=== PATIENT | male | born 1990 | race Caucasian/White ===

== ENCOUNTER 2018-10-26 15:13 | Inpatient (IN) | payer OTHER ==
--- NOTE | 2018-10-26 16:09 | ED ---
General Adult HPI - General Chief complaint: Psychiatric Symptoms Stated complaint: MENTAL HEALTH Time Seen by Provider: 10/26/18 15:36 Source: director of fundraising Mode of arrival: EMS Limitations: altered mental status - History of Present Illness Initial comments: Patient is a 27-year-old male presenting for active psychosis. He was found wandering in the backyard of someone's house in his underwear. Per EMS as well as firefighters, it is suspected that the patient took methamphetamines as well as cocaine. Patient is alert and oriented 1 and denies any pain but is unclear whether this is reliable or not. - Related Data Home Medications Medication Instructions Recorded Confirmed No Known Home Medications 10/26/18 10/26/18 Allergies Allergy/AdvReac Type Severity Reaction Status Date / Time No Known Allergies Allergy Verified 10/26/18 16:06 Review of Systems ROS Statement: Those systems with pertinent positive or pertinent negative responses have been documented in the HPI. Unable to be obtained as patient has altered mental status ROS Other: All systems not noted in ROS Statement are negative. Past Medical History Past Medical History: No Reported History History of Any Multi-Drug Resistant Organisms: None Reported Past Surgical History: No Surgical Hx Reported Past Psychological History: Bipolar Smoking Status: Current every day smoker Past Alcohol Use History: Occasional Past Drug Use History: Heroin, Opiates, Prescription Drug Abuse General Exam - General Exam Comments Initial Comments: Constitutional: Pt appears well-developed and well-nourished. No distress. Head: Normocephalic and atraumatic. Eyes: EOM are normal. Neck: Normal range of motion. Neck supple. Cardiovascular: Normal rate, regular rhythm, S1 normal, S2 normal and normal heart sounds. Exam reveals no gallop and no friction rub. No murmur heard. Pulmonary/Chest: Effort normal and breath sounds normal. No tachypnea and no bradypnea. No respiratory distress. No wheezes or rales noted. Abdominal: Soft. Bowel sounds are normal. Pt exhibits no shifting dullness, no distension, no pulsatile liver, no fluid wave, no abdominal bruit and no ascites. There is no rigidity, no rebound, no guarding, no tenderness at McBurney's point and negative Rios's sign. There is no tenderness. Musculoskeletal: Normal range of motion. Neurological: Pt is alert and oriented to person. No cranial nerve deficit. Skin: Skin is warm and dry. No rash noted. Pt is not diaphoretic. No erythema. No pallor. Psychiatric: Pt has a normal mood. Thought content is abnormal. Patient denies any homicidal or suicidal ideation Limitations: altered mental status Course Vital Signs 10/26/18 10/26/18 10/26/18 15:16 18:09 20:05 Pulse Rate 70 87 80 Respiratory 18 16 16 Rate Blood Pressure 139/77 132/95 132/96 O2 Sat by Pulse 98 99 99 Oximetry - Reevaluation(s) Reevaluation #1: 10/26/18 16:30 - patient started having a tonic-clonic seizure requiring 5 of Versed and 2 of Ativan. Additional Laboratory studies were ordered and pending Reevaluation #2: 10/26/18 17:00 - patient was able to go to CAT scan and results are pending. Laboratory studies are also pending. Patient is becoming more combative and required another 5 of Versed and 2 of Ativan. Patient continues to protect his airway. Reevaluation #3: 10/26/18 19:27 - case is discussed with Dr. Christian and it was recommended ABG be obtained. However, patient became very combative when this happened. Patient was again not cooperative and decision was ultimately made to intubate the patient and patient will be admitted to the ICU. Laboratory studies did show that there was significant leukocytosis at 35,000 but there is no focal source of infection. Lactic acid was also elevated at 12 and therefore the patient was given infusion of normal saline as well as multiple boluses. Urinalysis was negative for infection as well as UDS pain only positive for marijuana. However, there is still high likelihood that the patient had an illicit drug use which caused his encephalopathy. Reevaluation #4: 10/26/18 19:42 - patient intubated without complication as noted in the procedure note. Reevaluation #5: 10/26/18 20:30 - post intubation x-ray showed possible new right upper lobe infi ltrate. This cannot be verified as there are technical IT problems prohibit viewing of this x-ray. Nonetheless, based on the x-ray reading by radiology, patient will be started on vancomycin and Zosyn. EKG Findings - EKG Comments: EKG Findings:: EKG shows normal sinus rhythm with rate of 97 bpm, SC interval 122, QRS 96, QTC 4-16. Procedures - Intubation Sedative: Etomidate Paralytic: Rocuronium Laryngoscope: Marissa Size: 4 ET Tube Size: 8 ET Tube Uncuffed: Yes Tube Secured Depth (cm): 23 Tube Secured Location: teeth Tube Placement Confirmation: visualized tube passing through cords, equal breath sounds bilaterally, confirmation by capnometry Patient Tolerated Procedure: well Intubation Complications: none Medical Decision Making - Medical Decision Making As noted in the course summary, patient was eventually intubated as he was unable to follow commands. Extensive discussion was had with ICU and it was decided that the patient could stay at our facility. Patient was started on a propofol drip and patient was intubated without complication. The etiology of the patient's encephalopathy is still unclear but there is no obvious source of infection and therefore antibiotics were not initiated. - Lab Data Result diagrams: 10/26/18 16:24 10/26/18 16:24 Lab Results 10/26/18 10/26/18 10/26/18 Range/Units 16:20 16:24 16:24 WBC 35.2 H (3.8-10.6) k/uL RBC 5.36 (4.30-5.90) m/uL Hgb 16.0 (13.0-17.5) gm/dL Hct 49.3 (39.0-53.0) % MCV 92.1 (80.0-100.0) fL MCH 29.9 (25.0-35.0) pg MCHC 32.4 (31.0-37.0) g/dL RDW 12.5 (11.5-15.5) % Plt Count 272 (150-450) k/uL Neutrophils % 87 % Lymphocytes % 2 % Monocytes % 9 % Eosinophils % 1 % Basophils % 0 % Neutrophils # 30.5 H (1.3-7.7) k/uL Lymphocytes # 0.7 L (1.0-4.8) k/uL Monocytes # 3.2 H (0-1.0) k/uL Eosinophils # 0.3 (0-0.7) k/uL Basophils # 0.1 (0-0.2) k/uL Manual Slide Review Performed RBC Morphology Normal PT (9.0-12.0) sec INR (<1.2) APTT (22.0-30.0) sec Sodium 148 H (137-145) mmol/L Potassium 4.4 (3.5-5.1) mmol/L Chloride 113 H (98-107) mmol/L Carbon Dioxide 11 L (22-30) mmol/L Anion Gap 24 mmol/L BUN 14 (9-20) mg/dL Creatinine 1.40 H (0.66-1.25) mg/dL Est GFR (CKD-EPI)AfAm 81 (>60 ml/min/1.73 sqM) Est GFR (CKD-EPI)NonAf 70 (>60 ml/min/1.73 sqM) Glucose 109 H (74-99) mg/dL POC Glucose (mg/dL) 112 H (75-99) mg/dL POC Glu Loss Prevention/Safety District Manager ID SalgatLissa Lactic Ac Sepsis Rflx Plasma Lactic Acid Caleb (0.7-2.0) mmol/L Calcium 10.9 H (8.4-10.2) mg/dL Total Bilirubin 1.0 (0.2-1.3) mg/dL AST 55 (17-59) U/L ALT 15 L (21-72) U/L Alkaline Phosphatase 89 (38-126) U/L Creatine Kinase (55-170) U/L Troponin I (0.000-0.034) ng/mL Total Protein 8.8 H (6.3-8.2) g/dL Albumin 5.7 H (3.5-5.0) g/dL Urine Color Urine Appearance (Clear) Urine pH (5.0-8.0) Ur Specific [place] (1.001-1.035) Urine Protein (Negative) Urine Glucose (UA) (Negative) Urine Ketones (Negative) Urine Blood (Negative) Urine Nitrite (Negative) Urine Bilirubin (Negative) Urine Urobilinogen (<2.0) mg/dL Ur Leukocyte Esterase (Negative) Urine RBC (0-5) /hpf Urine WBC (0-5) /hpf Urine Bacteria (None) /hpf Hyaline Casts (0-2) /lpf Urine Mucus (None) /hpf Salicylates <1.0 mg/dL Urine Opiates Screen (NotDetected) Ur Oxycodone Screen (NotDetected) Urine Methadone Screen (NotDetected) Ur Propoxyphene Screen (NotDetected) Acetaminophen <10.0 ug/mL Ur Barbiturates Screen (NotDetected) U Tricyclic Antidepress (NotDetected) Ur Phencyclidine Scrn (NotDetected) Ur Amphetamines Screen (NotDetected) U Methamphetamines Scrn (NotDetected) U Benzodiazepines Scrn (NotDetected) [place] <0.2 mmol/L Urine Cocaine Screen (NotDetected) U Marijuana (THC) Screen (NotDetected) Serum Alcohol <10 mg/dL 10/26/18 10/26/18 10/26/18 Range/Units 16:24 16:24 16:24 WBC (3.8-10.6) k/uL RBC (4.30-5.90) m/uL Hgb (13.0-17.5) gm/dL Hct (39.0-53.0) % MCV (80.0-100.0) fL MCH (25.0-35.0) pg MCHC (31.0-37.0) g/dL RDW (11.5-15.5) % Plt Count (150-450) k/uL Neutrophils % % Lymphocytes % % Monocytes % % Eosinophils % % Basophils % % Neutrophils # (1.3-7.7) k/uL Lymphocytes # (1.0-4.8) k/uL Monocytes # (0-1.0) k/uL Eosinophils # (0-0.7) k/uL Basophils # (0-0.2) k/uL Manual Slide Review RBC Morphology PT 10.6 (9.0-12.0) sec INR 1.0 (<1.2) APTT 18.1 L (22.0-30.0) sec Sodium (137-145) mmol/L Potassium (3.5-5.1) mmol/L Chloride (98-107) mmol/L Carbon Dioxide (22-30) mmol/L Anion Gap mmol/L BUN (9-20) mg/dL Creatinine (0.66-1.25) mg/dL Est GFR (CKD-EPI)AfAm (>60 ml/min/1.73 sqM) Est GFR (CKD-EPI)NonAf (>60 ml/min/1.73 sqM) Glucose (74-99) mg/dL POC Glucose (mg/dL) (75-99) mg/dL POC Glu Loss Prevention/Safety District Manager ID Lactic Ac Sepsis Rflx Plasma Lactic Acid Caleb 12.0 H* (0.7-2.0) mmol/L Calcium (8.4-10.2) mg/dL Total Bilirubin (0.2-1.3) mg/dL AST (17-59) U/L ALT (21-72) U/L Alkaline Phosphatase (38-126) U/L Creatine Kinase (55-170) U/L Troponin I <0.012 (0.000-0.034) ng/mL Total Protein (6.3-8.2) g/dL Albumin (3.5-5.0) g/dL Urine Color Urine Appearance (Clear) Urine pH (5.0-8.0) Ur Specific [place] (1.001-1.035) Urine Protein (Negative) Urine Glucose (UA) (Negative) Urine Ketones (Negative) Urine Blood (Negative) Urine Nitrite (Negative) Urine Bilirubin (Negative) Urine Urobilinogen (<2.0) mg/dL Ur Leukocyte Esterase (Negative) Urine RBC (0-5) /hpf Urine WBC (0-5) /hpf Urine Bacteria (None) /hpf Hyaline Casts (0-2) /lpf Urine Mucus (None) /hpf Salicylates mg/dL Urine Opiates Screen (NotDetected) Ur Oxycodone Screen (NotDetected) Urine Methadone Screen (NotDetected) Ur Propoxyphene Screen (NotDetected) Acetaminophen ug/mL Ur Barbiturates Screen (NotDetected) U Tricyclic Antidepress (NotDetected) Ur Phencyclidine Scrn (NotDetected) Ur Amphetamines Screen (NotDetected) U Methamphetamines Scrn (NotDetected) U Benzodiazepines Scrn (NotDetected) [place] mmol/L Urine Cocaine Screen (NotDetected) U Marijuana (THC) Screen (NotDetected) Serum Alcohol mg/dL 10/26/18 10/26/18 10/26/18 Range/Units 16:24 16:55 17:35 WBC (3.8-10.6) k/uL RBC (4.30-5.90) m/uL Hgb (13.0-17.5) gm/dL Hct (39.0-53.0) % MCV (80.0-100.0) fL MCH (25.0-35.0) pg MCHC (31.0-37.0) g/dL RDW (11.5-15.5) % Plt Count (150-450) k/uL Neutrophils % % Lymphocytes % % Monocytes % % Eosinophils % % Basophils % % Neutrophils # (1.3-7.7) k/uL Lymphocytes # (1.0-4.8) k/uL Monocytes # (0-1.0) k/uL Eosinophils # (0-0.7) k/uL Basophils # (0-0.2) k/uL Manual Slide Review RBC Morphology PT (9.0-12.0) sec INR (<1.2) APTT (22.0-30.0) sec Sodium (137-145) mmol/L Potassium (3.5-5.1) mmol/L Chloride (98-107) mmol/L Carbon Dioxide (22-30) mmol/L Anion Gap mmol/L BUN (9-20) mg/dL Creatinine (0.66-1.25) mg/dL Est GFR (CKD-EPI)AfAm (>60 ml/min/1.73 sqM) Est GFR (CKD-EPI)NonAf (>60 ml/min/1.73 sqM) Glucose (74-99) mg/dL POC Glucose (mg/dL) (75-99) mg/dL POC Glu Loss Prevention/Safety District Manager ID Lactic Ac Sepsis Rflx Y Plasma Lactic Acid Caleb (0.7-2.0) mmol/L Calcium (8.4-10.2) mg/dL Total Bilirubin (0.2-1.3) mg/dL AST (17-59) U/L ALT (21-72) U/L Alkaline Phosphatase (38-126) U/L Creatine Kinase 883 H (55-170) U/L Troponin I (0.000-0.034) ng/mL Total Protein (6.3-8.2) g/dL Albumin (3.5-5.0) g/dL Urine Color Light Yellow Urine Appearance Cloudy (Clear) Urine pH 5.5 (5.0-8.0) Ur Specific [place] 1.010 (1.001-1.035) Urine Protein 1+ H (Negative) Urine Glucose (UA) Negative (Negative) Urine Ketones Negative (Negative) Urine Blood Moderate H (Negative) Urine Nitrite Negative (Negative) Urine Bilirubin Negative (Negative) Urine Urobilinogen <2.0 (<2.0) mg/dL Ur Leukocyte Esterase Negative (Negative) Urine RBC 5 (0-5) /hpf Urine WBC 1 (0-5) /hpf Urine Bacteria Rare H (None) /hpf Hyaline Casts 1 (0-2) /lpf Urine Mucus Rare H (None) /hpf Salicylates mg/dL Urine Opiates Screen Not Detected (NotDetected) Ur Oxycodone Screen Not Detected (NotDetected) Urine Methadone Screen Not Detected (NotDetected) Ur Propoxyphene Screen Not Detected (NotDetected) Acetaminophen ug/mL Ur Barbiturates Screen Not Detected (NotDetected) U Tricyclic Antidepress Not Detected (NotDetected) Ur Phencyclidine Scrn Not Detected (NotDetected) Ur Amphetamines Screen Not Detected (NotDetected) U Methamphetamines Scrn Not Detected (NotDetected) U Benzodiazepines Scrn Not Detected (NotDetected) [place] mmol/L Urine Cocaine Screen Not Detected (NotDetected) U Marijuana (THC) Screen Detected H (NotDetected) Serum Alcohol mg/dL Disposition Clinical Impression: Encephalopathy, Witnessed seizure-like activity, SIRS (systemic inflammatory response syndrome) Disposition: ADMITTED IP TO THIS [facility] Condition: Fair Decision to Admit Reason: Admit from EC Decision Date: 10/26/18 Decision Time: 19:51
[2018-10-26] MEDS ORDERED: SODIUM CHLORIDE 0.9% 1,000 ML IV ONE ×2 (16:24→17:44)
[2018-10-26] MEDS ORDERED: MIDAZOLAM 1 MG/ML 5 ML VIAL IV STA ×3 (16:28→19:24)
[2018-10-26] MEDS: SODIUM CHLORIDE 0.9% 1,000 ML IV SCH (16:31)
[2018-10-26 16:39] LABS: Basophils # (A) 0.1 k/uL (0-0.2); Basophils % (A) 0 %; Eosinophils # (A) 0.3 k/uL (0-0.7); Eosinophils % (A) 1 %; HCT 49.3 % (39.0-53.0); Lymphocytes # (A) 0.7 k/uL (1.0-4.8); Lymphocytes % (A) 2 %; MCH 29.9 pg (25.0-35.0); MCHC 32.4 g/dL (31.0-37.0); MCV 92.1 fL (80.0-100.0); Mean Platelet Volume 7.2; Monocytes # (A) 3.2 k/uL (0-1.0); Monocytes % (A) 9 %; Neutrophils # (A) 30.5 k/uL (1.3-7.7); Neutrophils % (A) 87 %; Platelet Count 272 k/uL (150-450); RBC 5.36 m/uL (4.30-5.90); RDW 12.5 % (11.5-15.5); WBC 35.2 k/uL (3.8-10.6)
[2018-10-26 16:40] LABS: Glucose,Whole Blood 112 mg/dL (75-99)
[2018-10-26] MEDS ORDERED: LORazepam 2 MG/ML INJ IV STA ×2 (16:45→17:05)
[2018-10-26 16:48] LABS: ALT 15 U/L (21-72); AST 55 U/L (17-59); Acetaminophen <10.0 ug/mL; Albumin 5.7 g/dL (3.5-5.0); Alcohol <10 mg/dL; Alkaline Phosphatase 89 U/L (38-126); Anion Gap 24 mmol/L; Blood Urea Nitrogen 14 mg/dL (9-20); Calcium 10.9 mg/dL (8.4-10.2); Carbon Dioxide 11 mmol/L (22-30); Chloride 113 mmol/L (98-107); Glucose 109 mg/dL (74-99); Lithium <0.2 mmol/L; Salicylate <1.0 mg/dL; Sodium 148 mmol/L (137-145); Total Protein 8.8 g/dL (6.3-8.2)
[2018-10-26 16:53] LABS: Potassium 4.4 mmol/L (3.5-5.1)
[2018-10-26 16:56] LABS: Prothrombin Time 10.6 sec (9.0-12.0)
[2018-10-26 16:59] LABS: Partial Thromboplastin Time 18.1 sec (22.0-30.0)
--- NOTE | 2018-10-26 17:04 | CT ---
EXAMINATION TYPE: CT brain wo con DATE OF EXAM: 10/26/2018 COMPARISON: 03/26/2010 HISTORY: AMS, hallucinations, multiple drug usage CT DLP: 1290.4 mGycm. Automated Exposure Control for Dose Reduction was Utilized. TECHNIQUE: CT scan of the head is performed without contrast. FINDINGS: Ventricles of normal size. There is no mass effect nor midline shift. There is no sign of i ntracranial hemorrhage. Calvarium is intact. IMPRESSION: Negative CT scan of the brain. No change.
[2018-10-26 17:57] LABS: Appearance,Urine Cloudy (Clear); Bacteria,Urine Rare /hpf; Bilirubin,Urine Negative (Negative); Blood,Urine Moderate (Negative); Color,Urine Light Yellow; Glucose,Urine (UA) Negative (Negative); Hyaline Casts,Urine 1 /lpf (0-2); Ketones,Urine Negative (Negative); Leukocyte Esterase,Urine Negative (Negative); Mucus,Urine Rare /hpf; Nitrite,Urine Negative (Negative); PH, Urine 5.5 (5.0-8.0); Protein,Urine 1+ (Negative); RBC,Urine 5 /hpf (0-5); Urobilinogen,Urine <2.0 mg/dL (<2.0); WBC,Urine 1 /hpf (0-5)
[2018-10-26 18:02] LABS: Amphetamine Screen,Urine Not Detected (NotDetected); Barbiturate Screen,Urine Not Detected (NotDetected); Benzodiazepines Screen,Urine Not Detected (NotDetected); Cocaine Screen,Urine Not Detected (NotDetected); Methadone Screen, Urine Not Detected (NotDetected); Opiate Screen,Urine Not Detected (NotDetected); Oxycodone Screen, Urine Not Detected (NotDetected); Phencyclidine Screen,Urine Not Detected (NotDetected); Tricyclic Antidepressant,Urine Not Detected (NotDetected); Urn Cannabinoid Scrn Detected (NotDetected)
--- NOTE | 2018-10-26 18:12 | XR ---
EXAMINATION TYPE: XR chest 1V DATE OF EXAM: 10/26/2018 COMPARISON: 09/07/2014 HISTORY: Altered mental status TECHNIQUE: Single frontal view of the chest is obtained. FINDINGS: There is no heart failure nor confluent pneumonic infiltrate. There are chest leads. There is minimal pleural reaction at the right lung base. Bony thorax is intact. IMPRESSION: There is new pleural reaction and subsegmental atelectasis at the right lung base compar ed to old exam. No heart failure seen. Normal heart.
[2018-10-26] MEDS ORDERED: ETOMIDATE 2 MG/ML 10 ML VIAL IVP STA (19:31)
[2018-10-26] MEDS ORDERED: ROCURONIUM BROMIDE 10 MG/ML 10 ML VIAL IV STA (19:33)
[2018-10-26] MEDS ORDERED: PROPOFOL 1,000 MG in EMPTY BAG 1 BAG IV ONE (19:40)
[2018-10-26] MEDS ORDERED: NALOXONE 0.4 MG/ML 1 ML VIAL IV PRN (19:53)
[2018-10-26] MEDS ORDERED: ARTIFICIAL TEARS-HYPROMELLOSE DROPS 15 ML BTL BOTH EYES PRN (19:53)
[2018-10-26] MEDS ORDERED: levETIRAcetam IV 1,000 MG in SALINE 1 100ML.BAG IVPB STA (19:57)
--- NOTE | 2018-10-26 20:10 | XR ---
EXAMINATION TYPE: XR chest 1V [facility] DATE OF EXAM: 10/26/2018 COMPARISON: Today HISTORY: Intubation TECHNIQUE: Single frontal view of the chest is obtained. FINDINGS: The endotracheal tube is 2.5 cm from the maira. There is nasogastric tube.. There is possible small 3 cm area of infiltrate lateral to the right pulmonary hilum.. There is no he art failure. Heart size is normal. There is no pleural effusion. There are chest leads. IMPRESSION: Possible new right upper lobe infiltrate compared to exam earlier today.
[2018-10-26] MEDS ORDERED: VANCOMYCIN IV PER PHARMACY 1 EACH MISC MISCELLANE PRN (20:29)
[2018-10-26] MEDS ORDERED: VANCOMYCIN 1,250 MG in SODIUM CHLORIDE 0.9% 250 ML IVPB STA (20:36)
[2018-10-26 20:54] LABS: Glucose,Whole Blood 101 mg/dL (75-99)
[2018-10-26] MEDS: PROPOFOL 1,000 MG in EMPTY BAG 1 BAG IV SCH (21:00)
[2018-10-26 21:03] LABS: ABG Base Excess -6.3 mmol/L; ABG HCO3 19 mmol/L (21-25); ABG Oxygen Saturation 99.6 % (94-97); ABG PCO2 31 mmHg (35-45); ABG PH 7.39 (7.35-7.45); ABG PO2 204 mmHg (83-108); ABG TCO2 20 mmol/L (19-24)
[2018-10-26 21:12] VITALS: BMI 22.1
[2018-10-26] MEDS: PANTOPRAZOLE 40 MG/10 ML VIAL IV SCH (21:52)
[2018-10-27] MEDS: PIPERACILLIN-TAZOBACTAM 3.375 GM in SODIUM CHLORIDE 0.9% 100 ML IVPB SCH ×4 (00:48→23:50)
[2018-10-27] MEDS: HEPARIN SODIUM,PORCINE 5,000 UNIT/ML 1 ML VIAL SQ SCH ×4 (00:49→23:52)
[2018-10-27] MEDS: PROPOFOL 1,000 MG in EMPTY BAG 1 BAG IV SCH ×6 (02:18→22:03)
[2018-10-27 04:35] LABS: ABG Base Excess -5.1 mmol/L; ABG HCO3 20 mmol/L (21-25); ABG Oxygen Saturation 99.8 % (94-97); ABG PCO2 32 mmHg (35-45); ABG PO2 187 mmHg (83-108); ABG TCO2 21 mmol/L (19-24)
[2018-10-27 05:40] LABS: Basophils % (A) 0 %; Eosinophils # (A) 0.1 k/uL (0-0.7); Eosinophils % (A) 0 %; HCT 35.9 % (39.0-53.0); Lymphocytes % (A) 8 %; MCH 29.6 pg (25.0-35.0); MCHC 34.4 g/dL (31.0-37.0); Mean Platelet Volume 7.5; Monocytes # (A) 1.2 k/uL (0-1.0); Monocytes % (A) 10 %; Neutrophils # (A) 10.1 k/uL (1.3-7.7); Neutrophils % (A) 80 %; Platelet Count 195 k/uL (150-450); RBC 4.18 m/uL (4.30-5.90); RDW 13.3 % (11.5-15.5); WBC 12.6 k/uL (3.8-10.6)
[2018-10-27 05:52] LABS: Prothrombin Time 11.1 sec (9.0-12.0)
[2018-10-27 06:00] LABS: Albumin 3.4 g/dL (3.5-5.0); Magnesium 2.5 mg/dL (1.6-2.3); Phosphorus 2.9 mg/dL (2.5-4.5); Potassium 3.2 mmol/L (3.5-5.1); Total Bilirubin 0.8 mg/dL (0.2-1.3); Total Protein 5.6 g/dL (6.3-8.2)
--- NOTE | 2018-10-27 06:31 | XR ---
EXAMINATION TYPE: XR chest 1V portable DATE OF EXAM: 10/27/2018 HISTORY: mechanical ventilation. REFERENCE: Previous study dated 10/26/2018. FINDINGS: The patient is ET tube and NG tube remain in place, unchanged in appearance. The extreme apices of the lungs are not included on this study. Visualized portions of the lungs are clear. Pleural space are clear. The heart is not enlarged. IMPRESSION: LIMITED EXAMINATION DEMONSTRATING NO ACUTE ABNORMALITY.
[2018-10-27] MEDS: POTASSIUM CHLORIDE 10 MEQ in WATER FOR INJECTION 1 100ML.BAG IVPB SCH ×4 (06:59→15:29)
[2018-10-27] MEDS: SODIUM CHLORIDE 0.9% 1,000 ML IV SCH ×2 (07:01→19:44)
[2018-10-27 07:35] LABS: HGB 12.4 gm/dL (13.0-17.5)
[2018-10-27] MEDS ORDERED: VANCOMYCIN 1,250 MG in SODIUM CHLORIDE 0.9% 250 ML IVPB SCH (10:00)
[2018-10-27] MEDS: PANTOPRAZOLE 40 MG/10 ML VIAL IV SCH (10:45)
[2018-10-27] MEDS: CHLORHEXIDINE GLUCONATE 15 ML CUP MUCOUS MEM SCH ×2 (10:45→21:53)
[2018-10-27] MEDS: levETIRAcetam IV 500 MG in SALINE 1 100ML.BAG IVPB SCH ×2 (10:53→21:53)
[2018-10-27 10:57] LABS: Glucose,CSF 63 mg/dL (40-70); Total Protein,CSF 74 mg/dL (12-60)
--- NOTE | 2018-10-27 12:43 | P.PCN ---
Date of Procedure: 10/27/18 Preoperative Diagnosis: Altered mental status Postoperative Diagnosis: Altered mental status Procedure(s) Performed: Lumbar puncture Anesthesia: local Surgeon: Cyrus Dhillon Estimated Blood Loss (ml): 0 Pathology: other Condition: stable Disposition: ICU Operative Findings: A timeout was completed verifying correct patient and procedure. The patient was placed on his right lateral decubitus position in a semi- position with the help of the nursing staff. This procedure was done in the intensive care unit. The area and is lumbar was prepped and draped in the usual sterile fashion. Using landmarks, 22-gauge spinal needle was inserted in the L4-L5 interspace. The stylette was removed and the CSF was collected and sent out for routine studies. No bedside complications. The fluid was none cloudy. 4 tubes were filled with 3-4 mL of CSF. These were sent for the usual tests.
--- NOTE | 2018-10-27 13:00 | P.CNPUL ---
History of Present Illness Consult date: 10/27/18 Chief complaint: Altered mental status History of present illness: This is a 27-year-old male patient who was brought in with altered mental stat us. The patient was acting unusual and the need use over the past few days. The patient was found wandering in the backyard of someone's house in his underwear. The patient was saying things that did not make any sense. No reported headache or neck stiffness. No fever. He was also filing his teeth at home. According to the EMS and the firefighters, it was suspected that the patient was taking methamphetamines as well as cocaine. Note that other sharp objects also found in the house including razors. The patient was alert and oriented 1 at a time of the emergency arrival and there was no pain and the reported history was not reliable. In the emergency department, the patient had a generalized tonic-clonic seizure. He received Ativan 6 milligrams and 15 mg of Versed initiated to control his seizure and subsequently was found to be quite agitated requiring this much of benzodiazepines for control of his agitation. Subsequently, the patient was placed on propofol and he was in tubated and placed on mechanical ventilator. CAT scan of the brain was negative. The patient had a lactic acid level of 12. His white cell count was at 35. His initial creatinine was at 1.4 and the CPK was 883. The urine drug screen was positive for marijuana only and alcohol was negative. Patient only had a 1 spike of temperature 100.3 and since then has been afebrile. The patient was brought into the intensive care unit. He was placed on IV fluids. Fluid resuscitation was continued throughout the night. He was kept on propofol. There was also on for any seizure activity and there was no clinical seizures noted throughout the night. His white cell count came down to 12.6. The patient lactic acidosis level dropped down to 1.2 with fluid resuscitation. The patient was given a dose of vancomycin and was kept on IV Zosyn throughout the night. The chest x-ray shows no acute abnormalities. ET tube is in a good location. Nevertheless, that he was putting out approximately the 150 mL of coffee-ground material. I had the chance to evaluate this patient this morning. This morning the patient was on mechanical ventilator sedated with propofol. His follow-up blood gases showed a pH of 7.4 with a pCO2 of 32 and pO2 187. This was on FiO2 of 40%. I noted improvement in his acidosis. I also noted improvement in his white cell count. Nevertheless the creatinine is up to 1.9. Serum bicarb is up to 19. He is producing adequate amount of urine output. The exact cause for delirium is not clear. Could be drug use. Viral encephalitis was also considered and based on that a quick lumbar puncture was done in the intensive care unit. Family is also the bedside. He is on normal saline at the rate of 75cc/An hour. No other significant issues otherwise for now. Review of Systems ROS unobtainable: due to mental status Past Medical History Past Medical History: No Reported History Additional Past Medical History / Comment(s): scoliosis History of Any Multi-Drug Resistant Organisms: None Reported Past Surgical History: No Surgical Hx Reported Past Anesthesia/Blood Transfusion Reactions: No Reported Reaction Past Psychological History: Bipolar Smoking Status: Current every day smoker Past Alcohol Use History: Occasional Past Drug Use History: Heroin, Opiates, Prescription Drug Abuse - Past Family History Mother Family Medical History: Cancer, Congestive Heart Failure (CHF), Diabetes Mellitus, Hypertension Additional Family Medical History / Comment(s): skin cancer Father Family Medical History: Cancer, Prostate Disorder Additional Family Medical History / Comment(s): leukemia, systemic lupus erythematosus Medications and Allergies Home Medications Medication Instructions Recorded Confirmed Type No Known Home Medications 10/26/18 10/26/18 History Allergies Allergy/AdvReac Type Severity Reaction Status Date / Time No Known Allergies Allergy Verified 10/26/18 16:06 Physical Exam Vitals: Vital Signs Temp Pulse Resp BP Pulse Ox 10/27/18 11:30 60 16 97/49 100 10/27/18 11:01 60 16 98/47 100 10/27/18 10:30 61 16 96/50 99 10/27/18 10:00 70 16 96/50 100 10/27/18 09:30 71 16 100/54 99 10/27/18 09:00 69 16 102/58 99 10/27/18 08:30 71 16 111/75 99 10/27/18 08:00 99.7 F H 70 16 110/74 100 10/27/18 07:30 70 13 102/53 99 10/27/18 07:29 16 10/27/18 07:00 69 16 102/55 100 10/27/18 06:30 68 16 104/59 99 10/27/18 06:00 68 16 104/59 99 10/27/18 05:30 67 16 102/54 99 10/27/18 05:00 70 16 101/55 99 10/27/18 04:30 71 16 103/56 100 10/27/18 04:15 72 16 99 10/27/18 04:00 99.5 F 70 16 103/55 99 10/27/18 03:45 67 16 99 10/27/18 03:30 70 16 99/56 99 10/27/18 03:15 67 16 101/53 99 10/27/18 03:00 68 16 98/55 99 10/27/18 02:45 69 16 99 10/27/18 02:30 69 16 99/55 99 10/27/18 02:15 68 16 101/55 98 10/27/18 02:00 69 16 98 10/27/18 01:45 68 16 99/57 99 10/27/18 01:30 67 16 103/57 98 10/27/18 01:15 70 16 102/59 99 10/27/18 01:00 73 13 100/58 99 10/27/18 00:45 70 16 103/57 99 10/27/18 00:30 70 16 102/70 99 10/27/18 00:15 68 18 99 10/27/18 00:12 68 17 100/65 99 10/27/18 00:00 99.8 F H 71 16 107/61 99 10/26/18 23:45 73 16 101/59 100 10/26/18 23:30 65 16 98/56 100 10/26/18 23:15 68 16 99/62 100 10/26/18 23:00 99.8 F H 67 16 100/56 99 10/26/18 22:50 67 16 100 10/26/18 22:40 67 16 99/58 100 10/26/18 22:30 67 16 100 10/26/18 22:20 65 16 101/62 100 10/26/18 22:10 65 16 101/57 100 10/26/18 22:00 65 16 100 10/26/18 21:50 64 16 100 10/26/18 21:40 64 16 102/60 100 10/26/18 21:30 67 16 100 10/26/18 21:20 64 16 103/59 100 10/26/18 21:10 65 19 109/64 100 10/26/18 21:00 76 16 99 10/26/18 20:50 100.3 F H 71 16 109/74 100 10/26/18 20:30 73 16 130/64 98 10/26/18 20:05 80 16 132/96 99 10/26/18 18:09 87 16 132/95 99 10/26/18 15:16 70 18 139/77 98 Intake and Output 10/26/18 10/27/18 10/27/18 22:59 06:59 14:59 Intake Total 150 1048.655 407.25 Output Total 535 855 660 Balance -385 193.655 -252.75 Intake: IV 150 850 375 Sodium Chloride 0.9% 1, 150 600 375 000 ml @ 75 mls/hr IV . [id number] GRACIELA Rx#:[id number] Vancomycin 1,250 mg In 250 Sodium Chloride 0.9% 250 ml @ 125 mls/hr IVPB Q12H GRACIELA Rx#:[id number] Intake, IV Titration 198.655 32.25 Amount Propofol 1,000 mg In 198.655 32.25 Empty Bag 1 bag @ Titrate IV .Q0M GRACIELA Rx#: [id number] Output: Gastric Drainage 120 Urine 535 855 540 Other: Voiding Method Indwelling Catheter Indwelling Catheter Indwelling Catheter Weight 68.039 kg 65.5 kg The patient is sedated, comfortable likely distress, currently intubated on a mechanical ventilator. He withdraws to deep painful stimulation all 4 extremities. He is currently on propofol infusion. Head exam was generally normal. There was no scleral icterus or corneal arcus. Mucous membranes were moist. Neck was supple and without jugular venous distension, thyromegaly, or carotid bruits. Carotids were easily palpable bilaterally. There was no adenopathy. Lungs were clear to auscultation and percussion, and with normal diaphragmatic excursion. No wheezes or rales were noted. Cardiac exam revealed the PMI to be normally situated and sized. The rhythm was regular and no extrasystoles were noted during several minutes of auscultation. The first and second heart sounds were normal and physiologic splitting of the second heart sound was noted. There were no murmurs, rubs, clicks, or gallops. Abdominal exam revealed normal bowel sounds. The abdomen was soft, non-tender, and without masses, organomegaly, or appreciable enlargement of the abdominal aorta. Examination of the extremities revealed easily palpable radial, femoral and pedal pulses. There was no cyanosis, clubbing or edema. Examination of the skin revealed no evidence of significant rashes, suspicious appearing nevi or other concerning lesions. Neurologically the patient has having equal and symmetrical pupils. No nystagm us. No facial asymmetry. His heavily sedated with propofol. He withdraws only to deep painful stimulation. No clonus. No Babinski. Results - Laboratory Findings CBC and BMP: 10/27/18 05:14 10/27/18 05:14 ABG ABG pH 7.40 (7.35-7.45) 10/27/18 04:34 ABG pCO2 32 mmHg (35-45) L 10/27/18 04:34 ABG pO2 187 mmHg (83-108) H 10/27/18 04:34 ABG O2 Saturation 99.8 % (94-97) H 10/27/18 04:34 PT/INR, D-dimer PT 11.1 sec (9.0-12.0) 10/27/18 05:14 INR 1.0 (<1.2) 10/27/18 05:14 Abnormal lab findings: Abnormal Labs 10/26/18 10/26/18 10/26/18 16:20 16:24 16:24 WBC 35.2 H RBC Hgb Hct Neutrophils # 30.5 H Lymphocytes # 0.7 L Monocytes # 3.2 H APTT ABG pCO2 ABG pO2 ABG HCO3 ABG O2 Saturation Sodium 148 H Potassium Chloride 113 H Carbon Dioxide 11 L Creatinine 1.40 H Glucose 109 H POC Glucose (mg/dL) 112 H Plasma Lactic Acid Caleb Calcium 10.9 H Magnesium ALT 15 L Creatine Kinase Total Protein 8.8 H Albumin 5.7 H Urine Protein Urine Blood Urine Bacteria Urine Mucus CSF Total Protein U Marijuana (THC) Screen 10/26/18 10/26/18 10/26/18 16:24 16:24 16:24 WBC RBC Hgb Hct Neutrophils # Lymphocytes # Monocytes # APTT 18.1 L ABG pCO2 ABG pO2 ABG HCO3 ABG O2 Saturation Sodium Potassium Chloride Carbon Dioxide Creatinine Glucose POC Glucose (mg/dL) Plasma Lactic Acid Caleb 12.0 H* Calcium Magnesium ALT Creatine Kinase 883 H Total Protein Albumin Urine Protein Urine Blood Urine Bacteria Urine Mucus CSF Total Protein U Marijuana (THC) Screen 10/26/18 10/26/18 10/26/18 17:35 20:41 21:00 WBC RBC Hgb Hct Neutrophils # Lymphocytes # Monocytes # APTT ABG pCO2 31 L ABG pO2 204 H ABG HCO3 19 L ABG O2 Saturation 99.6 H Sodium Potassium Chloride Carbon Dioxide Creatinine Glucose POC Glucose (mg/dL) 101 H Plasma Lactic Acid Caleb Calcium Magnesium ALT Creatine Kinase Total Protein Albumin Urine Protein 1+ H Urine Blood Moderate H Urine Bacteria Rare H Urine Mucus Rare H CSF Total Protein U Marijuana (THC) Screen Detected H 10/27/18 10/27/18 10/27/18 04:34 05:14 05:14 WBC 12.6 H RBC 4.18 L Hgb 12.4 L D Hct 35.9 L Neutrophils # 10.1 H Lymphocytes # Monocytes # 1.2 H APTT ABG pCO2 32 L ABG pO2 187 H ABG HCO3 20 L ABG O2 Saturation 99.8 H Sodium Potassium 3.2 L Chloride 116 H Carbon Dioxide 19 L Creatinine 1.92 H Glucose POC Glucose (mg/dL) Plasma Lactic Acid Caleb Calcium Magnesium 2.5 H ALT Creatine Kinase Total Protein 5.6 L Albumin 3.4 L Urine Protein Urine Blood Urine Bacteria Urine Mucus CSF Total Protein U Marijuana (THC) Screen 10/27/18 09:55 WBC RBC Hgb Hct Neutrophils # Lymphocytes # Monocytes # APTT ABG pCO2 ABG pO2 ABG HCO3 ABG O2 Saturation Sodium Potassium Chloride Carbon Dioxide Creatinine Glucose POC Glucose (mg/dL) Plasma Lactic Acid Caleb Calcium Magnesium ALT Creatine Kinase Total Protein Albumin Urine Protein Urine Blood Urine Bacteria Urine Mucus CSF Total Protein 74 H U Marijuana (THC) Screen - Diagnostic Findings Chest x-ray: image reviewed Assessment and Plan Plan: Assessment 1 altered mental status, suspecting underlying drug overdose. Nevertheless, the urine drug screen indicated only positive marijuana. I want a by itself does not extend the patient's overall presentation and it's possible the patient took any other psychedelic drugs such as LSD, mushrooms, the DMT, etc. and these are drugs that are not typically identified in the urine drug screen. Another possibility is viral encephalitis knowing that the patient was acting altered and delirious prior to his presentation and for that reason a lumbar puncture was obtained. The CAT scan of the brain is negative. 2 seizure activity, brief, likely drug-induced, currently on Keppra and propofol and the patient has not had any further seizure episodes since he arrived to the intensive care unit 3 severe lactic acidosis, recovered 4 leukocytosis, improved 5 acute respiratory failure secondary to above. This is an acute hypoxic respiratory failure and the patient is currently intubated on a mechanical ventilator and he has demonstrated adequate oxygenation and ventilation. Chest x-rays clear 6 suspect an upper GI bleed as the patient's NG tube is producing coffee-ground material 7 bipolar disorder 8 acute kidney injury in the creatinine is up to 1.9. Plan Keep the patient intubated on a mechanical ventilator. Wean down the FiO2 to maintain a saturation above 90%. No other vent changes for today. Chest x-ray was reviewed. Meanwhile, we'll keep the patient IV fluids with normal saline today to 75 mL an hour. Monitor renal function. Lactic acid level is improved. Send blood cultures. Send urine cultures. Empiric antibiotic coverage with a combination of Zosyn and vancomycin. Meanwhile, a lumbar puncture will be obtained to assess the CSF counts and also has reasonable to check the patient for HSV by PCR considering encephalitis. The patient would have an EEG today. We'll keep her on propofol throughout the night. Continue Keppra for now. We'll try to get further information on this patient from his family members. We we'll continue to follow make further recommendations based on his progress. He is afebrile for now. He is hemodynamically stable.
[2018-10-27 14:31] LABS: Appearance,CSF Clear; CSF Tube Number 2
[2018-10-27 14:32] LABS: Red Blood Cell,CSF 1900 u/L (0-10)
[2018-10-27 14:35] LABS: Nucleated Cells, CSF 25 u/L (0-5)
[2018-10-27 14:49] LABS: Diff, Total Cells Cnt, CSF 100; Mononuclear WBC,CSF 25 %; Polynuclear WBC,CSF 75 %
[2018-10-27] MEDS: IPRATROPIUM-ALBUTEROL 3 ML NEB INHALATION SCH ×3 (15:29→19:51)
[2018-10-27] MEDS: ACYCLOVIR SODIUM 650 MG in SODIUM CHLORIDE 0.9% 100 ML IVPB SCH ×2 (15:41→23:51)
[2018-10-27] MEDS ORDERED: SODIUM CHLORIDE 0.9% 1,000 ML IV ONE (19:01)
--- NOTE | 2018-10-27 21:40 | HP ---
HISTORY AND PHYSICAL CHIEF COMPLAINT: Mental status changes. HISTORY OF PRESENT ILLNESS: This 27-year-old white male came to the emergency room with mental status changes. He was confused and agitated. It was felt likely that this was drug related. He continued to deteriorate in the emergency room and had a seizure. He eventually had to be sedated and intubated. REVIEW OF SYSTEMS: Unobtainable. Past medical history, family history personal and social histories are all unobtainable. PHYSICAL EXAMINATION: Blood pressure 110/74 with a pulse 68, respirations of 21 on the ventilator. Head, ears, eyes, nose, mouth, and throat were normal except for being intubated. Breath sounds are heard on both sides and cardiac exam is normal. Abdomen is soft. No masses. Extremities are normal. IMPRESSION: Mental status changes with agitation and obtundation. PLAN: Follow with intensive medicine until he is awake and alert. MMODL / IJN: [id number] /
--- NOTE | 2018-10-27 21:57 | PN ---
PROGRESS NOTE DATE OF SERVICE: 10/27/2018 CHIEF COMPLAINT: Cephalopathy. HISTORY OF PRESENT ILLNESS: This gentleman is in bed and is sedated on the ventilator. At the present time, his vital signs are normal and stable. Laboratory studies are in improving. Lactic acidosis is improved. PHYSICAL EXAM: Breath sounds are heard bilaterally and cardiac exam is normal. Abdomen is soft. IMPRESSION: 1. Mental status changes. 2. Probable drug ingestion and overdose. PLAN: Continue respiratory support. PATTY / ISIDRAN: [id number] /
[2018-10-28] MEDS: PROPOFOL 1,000 MG in EMPTY BAG 1 BAG IV SCH ×5 (03:17→23:40)
[2018-10-28 04:15] LABS: ABG Base Excess -8.3 mmol/L; ABG HCO3 18 mmol/L (21-25); ABG Oxygen Saturation 99.6 % (94-97); ABG PCO2 33 mmHg (35-45); ABG PH 7.33 (7.35-7.45); ABG PO2 178 mmHg (83-108); ABG TCO2 19 mmol/L (19-24)
[2018-10-28 05:32] LABS: Basophils # (A) 0.1 k/uL (0-0.2); Basophils % (A) 1 %; Eosinophils # (A) 0.1 k/uL (0-0.7); Eosinophils % (A) 1 %; HCT 37.9 % (39.0-53.0); HGB 12.6 gm/dL (13.0-17.5); Lymphocytes % (A) 10 %; MCH 29.4 pg (25.0-35.0); MCHC 33.3 g/dL (31.0-37.0); MCV 88.5 fL (80.0-100.0); Mean Platelet Volume 6.7; Monocytes # (A) 0.9 k/uL (0-1.0); Monocytes % (A) 8 %; Neutrophils % (A) 80 %; Platelet Count 181 k/uL (150-450); RBC 4.29 m/uL (4.30-5.90)
[2018-10-28 05:41] LABS: Calcium 8.9 mg/dL (8.4-10.2); Magnesium 2.2 mg/dL (1.6-2.3); Potassium 3.9 mmol/L (3.5-5.1)
[2018-10-28] MEDS: IPRATROPIUM-ALBUTEROL 3 ML NEB INHALATION SCH ×4 (07:40→19:57)
[2018-10-28 07:45] LABS: Red Blood Cell, CSF Fresh 100 %
[2018-10-28] MEDS: NOREPINEPHRINE 4 MG in SODIUM CHLORIDE 0.9% 250 ML IV SCH ×2 (07:58→16:06)
[2018-10-28] MEDS: CHLORHEXIDINE GLUCONATE 15 ML CUP MUCOUS MEM SCH ×2 (08:04→20:06)
[2018-10-28] MEDS: PANTOPRAZOLE 40 MG/10 ML VIAL IV SCH (08:04)
[2018-10-28] MEDS: PIPERACILLIN-TAZOBACTAM 3.375 GM in SODIUM CHLORIDE 0.9% 100 ML IVPB SCH ×3 (08:05→23:39)
--- NOTE | 2018-10-28 08:11 | XR ---
EXAMINATION TYPE: XR chest 1V portable DATE OF EXAM: 10/28/2018 CLINICAL HISTORY: Difficulty breathing progress study. TECHNIQUE: Single AP portable semiupright view of the chest is obtained. COMPARISON: Chest x-ray from one day earlier and older studies. FINDINGS: An endotracheal tube and orogastric tube are stable in appearance. Side-port orogastric tu be is above diaphragm, consider advancing. Lungs remain clear without pleural effusion or pneumothora x. Cardiac silhouette size is stable and upper limits of normal. Osseous structures are intact. IMPRESSION: Overall stable findings, no acute cardiopulmonary process.
--- NOTE | 2018-10-28 10:10 | EEG ---
ELECTROENCEPHALOGRAM REPORT PROCEDURE DATE: 10/27/2018. ELECTROENCEPHALOGRAM (EEG) REPORT: TECHNIQUE: A routine 18 channel EEG was performed with video using the 10/20 international electrode placement system. HISTORY: The patient arrived to the emergency room with altered mental status 10/26/2018. Patient had a seizure in the emergency room. The patient admitted to the ICU, currently ventilated. CURRENT MEDICATIONS: Diprivan. STUDY DURATION: 132 minutes. FINDINGS: Background: A sustained posterior dominant rhythm was not seen. ACTIVATION: Hyperventilation: Not performed. Photic stimulation: No driving seen. Sleep: An excessive sleep spindles were noted. Please note that an excess of beta frequency activity was noted during this recording. ABNORMALITIES: Diffuse synchronous and asynchronous 2-3 hertz slow wave activity was seen with superimposed beta, faster frequencies. These findings were by relative periods of electrical suppression lasting approximately 1-2 seconds. IMPRESSION: Abnormal EEG. Diffuse synchronous and asynchronous delta range slowing was seen by relative periods of electrical suppression. There were superimposed beta, faster frequencies. These findings are not epileptiform in nature. These findings indicate severe diffuse cerebral dysfunction and may in part be due to medication effect. No seizures were recorded. No epileptiform activity was present. These findings were called to the nurse taking care of the patient at 3:29 pm on 10/27/2018. MMODL / IJN: [id number] /
[2018-10-28] MEDS: HEPARIN SODIUM,PORCINE 5,000 UNIT/ML 1 ML VIAL SQ SCH ×3 (10:17→23:40)
[2018-10-28] MEDS: levETIRAcetam IV 500 MG in SALINE 1 100ML.BAG IVPB SCH ×2 (10:17→20:05)
[2018-10-28] MEDS: ACYCLOVIR SODIUM 650 MG in SODIUM CHLORIDE 0.9% 100 ML IVPB SCH ×2 (10:18→20:55)
--- NOTE | 2018-10-28 11:53 | P.PN ---
Subjective Progress Note Date: 10/28/18 Principal diagnosis: Acute hypoxic respiratory failure secondary to mental status change and seizure activity, possible drug overdose. This is a 27-year-old male patient who was brought in with altered mental status. The patient was acting unusual and the need use over the past few days. The patient was found wandering in the backyard of someone's house in his underwear. The patient was saying things that did not make any sense. No reported headache or neck stiffness. No fever. He was also filing his teeth at home. According to the EMS and the firefighters, it was suspected that the patient was taking methamphetamines as well as cocaine. Note that other sharp objects also found in the house including razors. The patient was alert and oriented 1 at a time of the emergency arrival and there was no pain and the reported history was not reliable. In the emergency department, the patient had a generalized tonic-clonic seizure. He received Ativan 6 milligrams and 15 mg of Versed initiated to control his seizure and subsequently was found to be quite agitated requiring this much of benzodiazepines for control of his agitation. Subsequently, the patient was placed on propofol and he was intubated and placed on mechanical ventilator. CAT scan of the brain was negative. The patient had a lactic acid level of 12. His white cell count was at 35. His initial creatinine was at 1.4 and the CPK was 883. The urine drug screen was positive for marijuana only and alcohol was negative. Patient only had a 1 spike of temperature 100.3 and since then has been afebrile.The patient was brought into the intensive care unit. He was placed on IV fluids. Fluid resuscitation was continued throughout the night. He was kept on propofol. There was also on for any seizure activity and there was no clinical seizures noted throughout the night. His white cell count came down to 12.6. The patient lactic acidosis level dropped down to 1.2 with fluid resuscitation. The patient was given a dose of vancomycin and was kept on IV Zosyn throughout the night. The chest x-ray shows no acute abnormalities. ET tube is in a good location. Nevertheless, that he was putting out approximately the 150 mL of coffee-ground material.I had the chance to evaluate this patient this morning. This morning the patient was on mechanical ventilator sedated with propofol. His follow-up blood gases showed a pH of 7.4 with a pCO2 of 32 and pO2 187. This was on FiO2 of 40%. I noted improvement in his acidosis. I also noted improvement in his white cell count. Nevertheless the creatinine is up to 1.9. Serum bicarb is up to 19. He is producing adequate amount of urine output. The exact cause for delirium is not clear. Could be drug use. Viral encephalitis was also considered and based on that a quick lumbar puncture was done in the intensive care unit. Family is also the bedside. He is on normal saline at the rate of 75cc/An hour. No other significant issues otherwise for now. Reevaluated today on 10/28/2018, patient remains on mechanical ventilation, presently on assist control rate of 16, volume of 500 FiO2 of 40% and PEEP of 5. ABG showed a pO2 of 178 pCO2 of 33 pH of 7.33 hence cut down his FiO2 from 40% to 35% patient remains on antibiotics, remains on acyclovir, initial report on his spinal fluid was noted. Protein is slightly elevated at 74, glucose is normal at 63 total nucleated cells were 25. Labs were reviewed today, WBC count is 10 hemoglobin is 12.6 electrolytes are normal sodium is a bit elevated at 145. However his renal profile seems to be worse with a BUN of 14 and creatinine 2.32, CPK yesterday was 1537, no CPK was done today, hence I will order. Patient was still on propofol this morning at 75 mcg/kg/m, I titrated propofol down to 30 g, and the patient was noted to be extremely agitated, restless, followed simple instructions by squeezing hands and wiggling toes. But clearly was noted to be extremely agitated. Hence had to place him back on propofol. Chest x-ray was reviewed and seems to be normal. Objective - Vital Signs Vital signs: Vital Signs Temp 98.2 F 10/28/18 08:00 Pulse 68 10/28/18 11:23 Resp 16 10/28/18 11:00 BP 106/61 10/28/18 11:00 Pulse Ox 99 10/28/18 11:00 Intake & Output 10/27/18 10/28/18 10/28/18 18:59 06:59 18:59 Intake Total 8483.892 9831.406 895.742 Output Total 1140 746 430 Balance 221.317 3411.406 465.742 Weight 64.7 kg Intake: IV 875 2125 800 Acyclovir Sodium 650 mg 100 100 In Sodium Chloride 0.9% 100 ml @ 100 mls/hr IVPB Q8HR [facility] Rx#:[id number] Piperacillin-Tazobactam 3 100 100 .375 gm In Sodium Chloride 0.9% 100 ml @ 25 mls/hr IVPB Q8HR [facility] Rx# :[id number] Sodium Chloride 0.9% 1, 875 1825 600 000 ml @ 125 mls/hr IV . Q8H [facility] Rx#:[id number] levETIRAcetam IV 500 mg 100 In Saline 1 100ml.bag @ 400 mls/hr IVPB Q12HR [facility] Rx#:[id number] Intake, IV Titration 451.900 173.406 95.742 Amount Potassium Chloride 10 meq 300 In Water For Injection 1 100ml.bag @ 100 mls/hr IVPB Q1HR [facility] Rx#: [id number] Propofol 1,000 mg In 151.900 173.406 95.742 Empty Bag 1 bag @ Titrate IV .Q0M [facility] Rx#: [id number] Output: Gastric Drainage 120 Urine 1020 746 430 Other: Voiding Method Indwelling Catheter Indwelling Catheter Indwelling Catheter # Bowel Movements 1 - Exam Physical Exam: Revealed a 27-year-old white male on mechanical ventilation, arousable, but extremely agitated when the propofol dose was cut down to half. Head: Atraumatic, normocephalic. HEENT:[Neck is supple.] [No neck masses.] [No thyromegaly.] PERRLA, EOMI, no icterus. Endotracheal tube and orogastric tube are intact. Chest: [Clear throughout, no crackles, no rhonchi, no wheezes.] Cardiac Exam: [Normal S1 and S2, no S3 gallop, no murmur.] Abdomen: [Soft, nontender, no megaly, no rebound, no guarding, normal bowel sounds.] Extremities: [No clubbing, no edema, no cyanosis.] Neurological Exam: On a lower dose of propofol, patient was noted to be arousable, followed very simple instructions, but extremely agitated to the poi nt that he could not taper the propofol any further to extubate. Psychiatric: Could not be assessed. Skin: No rashes. Lymphatics: No lymphadenopathy. - Labs CBC & Chem 7: 10/28/18 05:12 10/28/18 05:12 Labs: Abnormal Lab Results - Last 24 Hours (Table) 10/27/18 10/27/18 10/28/18 Range/Units 05:14 09:55 04:13 RBC (4.30-5.90) m/uL Hgb (13.0-17.5) gm/dL Hct (39.0-53.0) % Neutrophils # (1.3-7.7) k/uL ABG pH 7.33 L (7.35-7.45) ABG pCO2 33 L (35-45) mmHg ABG pO2 178 H (83-108) mmHg ABG HCO3 18 L (21-25) mmol/L ABG O2 Saturation 99.6 H (94-97) % Chloride (98-107) mmol/L Carbon Dioxide (22-30) mmol/L Creatinine (0.66-1.25) mg/dL Creatine Kinase 1537 H* (55-170) U/L CSF RBC 1900 H (0-10) u/L CSF Tot Nucleated Cells 25 H* (0-5) u/L CSF Total Protein 74 H (12-60) mg/dL 10/28/18 10/28/18 Range/Units 05:12 05:12 RBC 4.29 L (4.30-5.90) m/uL Hgb 12.6 L (13.0-17.5) gm/dL Hct 37.9 L (39.0-53.0) % Neutrophils # 8.0 H (1.3-7.7) k/uL ABG pH (7.35-7.45) ABG pCO2 (35-45) mmHg ABG pO2 (83-108) mmHg ABG HCO3 (21-25) mmol/L ABG O2 Saturation (94-97) % Chloride 119 H (98-107) mmol/L Carbon Dioxide 17 L (22-30) mmol/L Creatinine 2.32 H (0.66-1.25) mg/dL Creatine Kinase (55-170) U/L CSF RBC (0-10) u/L CSF Tot Nucleated Cells (0-5) u/L CSF Total Protein (12-60) mg/dL Microbiology - Last 24 Hours (Table) 10/27/18 00:09 Urine Culture - Final Urine,Catheterized 10/27/18 09:55 CSF Gram Stain - Preliminary Cerebral Spinal Fluid CSF Culture - Preliminary Assessment and Plan Assessment: Impression: 1 altered mental status, suspect underlying drug overdose. 2 seizure activity likely drug-induced patient is presently on Keppra and propofol. 3 severe lactic acidosis on presentation could be related to seizure activity, strongly doubt sepsis. 4 acute hypoxic respiratory failure secondary to extreme agitation seizures, no clear-cut evidence of pneumonia on the chest x-ray. 5 bipolar disorder 6 acute kidney injury Recommendation: Continue present mode of mechanical ventilation, continue seizure medications, continue empiric antibiotics, initiate on cefoxitin disease consultation, consider nephrology consultation, awaiting HSV PCR. 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 Discontinue if PCR is negative. Continue GI and DVT prophylaxis. Discussed his condition with his family at bedside including his father, and updated them on his condition. Patient will likely be extubated and weaned either later today or possibly in the next 24 hours. We'll continue to follow. Critical care time is 35 minutes. Time with Patient: Greater than 30
[2018-10-28] MEDS: HYDROmorphone 1 MG/ML 1 ML SYRINGE IVP PRN ×2 (16:15→20:06)
[2018-10-28] MEDS: SODIUM CHLORIDE 0.9% 1,000 ML IV SCH ×2 (16:17→20:09)
--- NOTE | 2018-10-28 17:41 | PN ---
PROGRESS NOTE CHIEF COMPLAINT: Encephalopathy and in coma. HISTORY OF PRESENT ILLNESS: This gentleman is now awake and alert. He has been taken off the ventilator. He is reluctant to talk about what happened, but it does sound as though he is depressed and was trying to hurt himself. PHYSICAL EXAM: Vital signs are normal. Chest is clear. Cardiac exam is normal. Abdomen is soft, nontender. IMPRESSION: Status post drug use with encephalopathy and severe respiratory depression. PLAN: Await psych consult and then either send home or move to a psych unit. MMODL / IJN: [id number] /
[2018-10-29] MEDS: PROPOFOL 1,000 MG in EMPTY BAG 1 BAG IV SCH ×2 (03:13→09:59)
[2018-10-29] MEDS: SODIUM CHLORIDE 0.9% 1,000 ML IV SCH (03:13)
[2018-10-29] MEDS: HYDROmorphone 1 MG/ML 1 ML SYRINGE IVP PRN ×2 (04:42→09:55)
[2018-10-29 05:05] VITALS: RESP 16
[2018-10-29] MEDS ORDERED: ACETAMINOPHEN IV (For NPO) 1,000 MG in EMPTY BAG 1 BAG IVPB ONE (05:05)
[2018-10-29 05:53] LABS: Basophils % (A) 0 %; Eosinophils # (A) 0.1 k/uL (0-0.7); Eosinophils % (A) 2 %; HCT 32.7 % (39.0-53.0); HGB 11.3 gm/dL (13.0-17.5); Lymphocytes # (A) 0.7 k/uL (1.0-4.8); Lymphocytes % (A) 9 %; MCH 30.4 pg (25.0-35.0); MCHC 34.6 g/dL (31.0-37.0); MCV 87.7 fL (80.0-100.0); Mean Platelet Volume 7.2; Monocytes # (A) 0.6 k/uL (0-1.0); Monocytes % (A) 7 %; Neutrophils % (A) 81 %; Platelet Count 174 k/uL (150-450); RBC 3.72 m/uL (4.30-5.90); RDW 13.7 % (11.5-15.5); WBC 7.5 k/uL (3.8-10.6)
[2018-10-29 06:16] LABS: Calcium 8.2 mg/dL (8.4-10.2); Magnesium 1.6 mg/dL (1.6-2.3); Phosphorus 3.3 mg/dL (2.5-4.5); Potassium 3.7 mmol/L (3.5-5.1)
[2018-10-29] MEDS: POTASSIUM CHLORIDE 10 MEQ in WATER FOR INJECTION 1 100ML.BAG IVPB SCH ×2 (06:55→08:15)
[2018-10-29] MEDS: MAGNESIUM SULFATE-D5W PMX 1 GM in DEXTROSE/WATER 1 100ML.BAG IVPB SCH ×2 (06:55→08:15)
[2018-10-29] MEDS: ACYCLOVIR SODIUM 650 MG in SODIUM CHLORIDE 0.9% 100 ML IVPB SCH (08:07)
[2018-10-29 08:10] LABS: ABG Base Excess -8.3 mmol/L; ABG HCO3 18 mmol/L (21-25); ABG Oxygen Saturation 98.9 % (94-97); ABG PCO2 33 mmHg (35-45); ABG PH 7.33 (7.35-7.45); ABG PO2 122 mmHg (83-108); ABG TCO2 19 mmol/L (19-24)
[2018-10-29] MEDS: PIPERACILLIN-TAZOBACTAM 3.375 GM in SODIUM CHLORIDE 0.9% 100 ML IVPB SCH (08:15)
[2018-10-29] MEDS: CHLORHEXIDINE GLUCONATE 15 ML CUP MUCOUS MEM SCH (08:15)
[2018-10-29] MEDS: PANTOPRAZOLE 40 MG/10 ML VIAL IV SCH (08:16)
[2018-10-29] MEDS: HEPARIN SODIUM,PORCINE 5,000 UNIT/ML 1 ML VIAL SQ SCH (08:16)
[2018-10-29] MEDS: IPRATROPIUM-ALBUTEROL 3 ML NEB INHALATION SCH ×2 (08:17→11:37)
[2018-10-29] MEDS: levETIRAcetam IV 500 MG in SALINE 1 100ML.BAG IVPB SCH (08:19)
--- NOTE | 2018-10-29 08:41 | XR ---
EXAMINATION TYPE: XR chest 1V portable DATE OF EXAM: 10/29/2018 COMPARISON: 10/28/2018 HISTORY: Ventilatory dependent respiratory failure TECHNIQUE: Single frontal view of the chest is obtained. FINDINGS: Endotracheal and enteric tubes are again seen however the enteric tube has its fenestrated portion above the gastroesophageal junction and should be advanced at least 5 cm for optimal placeme nt. There is no focal air space opacity, pleural effusion, or pneumothorax seen. The cardiac silhoue tte size is within normal limits. The osseous structures are intact. IMPRESSION: Stable exam with no acute cardiopulmonary process however the enteric tube is suboptimal ly place and should be advanced at least 5 cm.
--- NOTE | 2018-10-29 08:44 | P.CONS ---
History of Present Illness - Reason for Consult Consult date: 10/29/18 Possible sepsis - History of Present Illness This is a 27-year-old male patient seen in the intensive care unit intubated and on mechanical ventilation. Patient presented to [facility] on October 26 due to altered mental status. According to the chart, patient was acting strangely at home for a couple of days prior to presentation. Patient was brought in by EMS and there was suspicion for methamphetamines as well as cocaine use. There were razor blades found in the bathroom. In the emergency center, patient had a tonic-clonic seizure and patient was agitated subsequently placed on propofol and intubated at that time. CAT scan of the brain was negative. Chest x-ray showed no acute findings. Initial white count was 35.2 and currently down to 7.5. Patient had a temperature on presentation 100.3 and temperature max last night was 101.3. Initial hemoglobin was 16 in today at 11.3. Patient has had a bloody stool 2 days ago and initially bloody return from NG tube. His creatinine is 1.8 and nephrology is following for acute kidney injury. CK initially 883 and repeat 44,794. Initial lactic acid was 12. Urine drug screen was positive for marijuana only, alcohol negative. Acetaminophen and salicylate levels negative. Lumbar puncture was performed and fluid was clear, RBCs 1900, nuclear cells 25, mononuclear 25%, polynuclear 75%, RBCs 100, glucose 63 and protein 74. Cerebral spinal fluid culture reveals rare polymorphonuclear leukocytes, no organisms seen on Gram stain. No growth at 24 hours. Blood cultures no growth after 24 hours and urine culture no growth after 18 hours. Cytology from cerebral spinal fluid is pending. EEG revealed abnormal EEG findings are not epileptiform in nature may indicate severe diffuse cerebral dysfunction may in part be due to medication effect. No seizures were recorded. Herpes simplex virus testing is in process. Patient is currently on IV acyclovir, Keppra and Zosyn. Patient did not require vasopressors. Review of Systems ROS unobtainable: due to endotracheal tube, due to mental status Past Medical History Past Medical History: No Reported History Additional Past Medical History / Comment(s): scoliosis History of Any Multi-Drug Resistant Organisms: None Reported Past Surgical History: No Surgical Hx Reported Past Anesthesia/Blood Transfusion Reactions: No Reported Reaction Past Psychological History: Bipolar Smoking Status: Current every day smoker Past Alcohol Use History: Occasional Past Drug Use History: Heroin, Opiates, Prescription Drug Abuse - Past Family History Mother Family Medical History: Cancer, Congestive Heart Failure (CHF), Diabetes Mellitus, Hypertension Additional Family Medical History / Comment(s): skin cancer Father Family Medical History: Cancer, Prostate Disorder Additional Family Medical History / Comment(s): leukemia, systemic lupus erythematosus Medications and Allergies Home Medications Medication Instructions Recorded Confirmed Type No Known Home Medications 10/26/18 10/26/18 History Allergies Allergy/AdvReac Type Severity Reaction Status Date / Time No Known Allergies Allergy Verified 10/26/18 16:06 Physical Exam Vitals: Vital Signs Temp Pulse Resp BP Pulse Ox 10/29/18 08:17 66 10/29/18 08:00 98.8 F 64 16 102/58 97 10/29/18 07:30 62 16 101/57 97 10/29/18 07:00 62 16 99/54 97 10/29/18 06:30 64 16 98/52 96 10/29/18 06:00 99.5 F 68 16 100/54 96 10/29/18 05:30 72 16 109/61 98 10/29/18 05:00 101.3 F H 81 16 117/70 97 10/29/18 04:30 76 19 116/75 99 10/29/18 04:00 101.3 F H 81 19 116/69 97 10/29/18 03:30 78 18 112/64 98 10/29/18 03:19 19 10/29/18 03:16 98 10/29/18 03:00 98 19 107/59 98 10/29/18 02:30 76 18 104/60 97 10/29/18 02:00 77 20 107/60 97 10/29/18 01:30 81 18 105/57 97 10/29/18 01:00 79 20 104/59 97 10/29/18 00:30 80 17 110/57 97 10/29/18 00:11 85 18 97 10/29/18 00:00 100.1 F H 82 17 107/56 97 10/28/18 23:30 82 17 106/56 97 10/28/18 23:00 85 17 107/57 97 10/28/18 22:30 85 16 104/57 97 10/28/18 22:00 87 16 105/60 97 10/28/18 21:30 86 16 109/63 97 10/28/18 21:00 81 16 114/103 99 10/28/18 20:30 101 H 13 115/68 97 10/28/18 20:07 84 10/28/18 20:00 99.8 F H 81 16 112/62 99 10/28/18 19:58 96 10/28/18 19:30 86 18 105/61 98 10/28/18 18:30 85 18 102/58 97 10/28/18 18:00 86 17 104/60 97 10/28/18 17:30 83 17 99/56 97 10/28/18 17:00 88 18 112/63 97 10/28/18 16:30 106 H 20 105/60 98 10/28/18 16:19 87 10/28/18 16:12 93 10/28/18 16:00 98 F 82 20 110/61 99 10/28/18 15:30 85 20 107/57 99 10/28/18 15:00 85 20 101/57 100 10/28/18 14:30 85 21 106/61 99 10/28/18 14:00 99 22 102/52 99 10/28/18 13:30 85 18 100/55 97 10/28/18 13:00 80 18 105/55 99 10/28/18 12:30 82 17 109/57 100 10/28/18 12:00 97.9 F 76 16 102/55 100 10/28/18 11:30 71 16 104/58 99 10/28/18 11:23 68 10/28/18 11:17 70 10/28/18 11:00 67 16 106/61 99 10/28/18 10:30 64 17 110/56 99 10/28/18 10:00 71 18 113/78 99 10/28/18 09:30 101 H 25 H 114/61 94 L 10/28/18 09:00 72 17 109/60 98 10/28/18 08:30 71 16 110/58 99 Intake and Output 10/28/18 10/29/18 10/29/18 22:59 06:59 14:59 Intake Total 1600 1728.125 150 Output Total 478 1105 105 Balance 1122 623.125 45 Intake: IV 1500 1550 150 ACETAMINOPHEN IV (For NPO 100 ) 1,000 mg In Empty Bag 1 bag @ 400 mls/hr IVPB ONCE ONE Rx#:[id number] Acyclovir Sodium 650 mg 100 In Sodium Chloride 0.9% 100 ml @ 100 mls/hr IVPB Q8HR [facility] Rx#:[id number] Piperacillin-Tazobactam 3 100 100 .375 gm In Sodium Chloride 0.9% 100 ml @ 25 mls/hr IVPB Q8HR [facility] Rx# :[id number] Sodium Chloride 0.9% 1, 1200 1350 150 000 ml @ 150 mls/hr IV . Q6H40M [facility] Rx#:[id number] levETIRAcetam IV 500 mg 100 In Saline 1 100ml.bag @ 400 mls/hr IVPB Q12HR [facility] Rx#:[id number] Intake, IV Titration 100 178.125 Amount Propofol 1,000 mg In 100 178.125 Empty Bag 1 bag @ Titrate IV .Q0M [facility] Rx#: [id number] Output: Gastric Drainage 330 Urine 478 775 105 Other: Voiding Method Indwelling Catheter Indwelling Catheter Indwelling Catheter Weight 69.4 kg Gen: This is a 27-year-old male. He is intubated and on mechanical ventilation. He appears to be comfortable and in no acute distress. HEENT: Head is atraumatic, normocephalic. Anicteric. Conjunctiva pink. Oral ET and gastric tube in place. Oral mucous members are moist. NECK: Supple. No JVD. No lymphadenopathy. No thyromegaly. LUNGS: Clear to auscultation. No wheezes or rhonchi. No intercostal retractions. HEART: Regular rate and rhythm. No murmur. ABDOMEN: Soft. Bowel sounds are present. No masses. No tenderness. EXTREMITIES: No pedal edema. No calf tenderness. Dorsalis pedis +2 bilaterally. NEUROLOGICAL: Patient is sedated. Results Results: Laboratory Results WBC 7.5 k/uL (3.8-10.6) 10/29/18 05:39 RBC 3.72 m/uL (4.30-5.90) L 10/29/18 05:39 Hgb 11.3 gm/dL (13.0-17.5) L 10/29/18 05:39 Hct 32.7 % (39.0-53.0) L 10/29/18 05:39 MCV 87.7 fL (80.0-100.0) 10/29/18 05:39 MCH 30.4 pg (25.0-35.0) 10/29/18 05:39 MCHC 34.6 g/dL (31.0-37.0) 10/29/18 05:39 RDW 13.7 % (11.5-15.5) 10/29/18 05:39 Plt Count 174 k/uL (150-450) 10/29/18 05:39 Neutrophils % 81 % 10/29/18 05:39 Lymphocytes % 9 % 10/29/18 05:39 Monocytes % 7 % 10/29/18 05:39 Eosinophils % 2 % 10/29/18 05:39 Basophils % 0 % 10/29/18 05:39 Neutrophils # 6.0 k/uL (1.3-7.7) 10/29/18 05:39 Lymphocytes # 0.7 k/uL (1.0-4.8) L 10/29/18 05:39 Monocytes # 0.6 k/uL (0-1.0) 10/29/18 05:39 Eosinophils # 0.1 k/uL (0-0.7) 10/29/18 05:39 Basophils # 0.0 k/uL (0-0.2) 10/29/18 05:39 Manual Slide Review Performed 10/26/18 16:24 RBC Morphology Normal 10/26/18 16:24 PT 11.1 sec (9.0-12.0) 10/27/18 05:14 INR 1.0 (<1.2) 10/27/18 05:14 APTT 18.1 sec (22.0-30.0) L 10/26/18 16:24 Sample Site R radial 10/29/18 08:08 ABG pH 7.33 (7.35-7.45) L 10/29/18 08:08 ABG pCO2 33 mmHg (35-45) L 10/29/18 08:08 ABG pO2 122 mmHg (83-108) H 10/29/18 08:08 ABG HCO3 18 mmol/L (21-25) L 10/29/18 08:08 ABG Total CO2 19 mmol/L (19-24) 10/29/18 08:08 ABG O2 Saturation 98.9 % (94-97) H 10/29/18 08:08 ABG Base Excess -8.3 mmol/L 10/29/18 08:08 Ric Test Yes 10/29/18 08:08 FiO2 35 % 10/29/18 08:08 Sodium 145 mmol/L (137-145) 10/29/18 05:39 Potassium 3.7 mmol/L (3.5-5.1) 10/29/18 05:39 Chloride 122 mmol/L (98-107) H 10/29/18 05:39 Carbon Dioxide 18 mmol/L (22-30) L 10/29/18 05:39 Anion Gap 5 mmol/L 10/29/18 05:39 BUN 11 mg/dL (9-20) 10/29/18 05:39 Creatinine 1.80 mg/dL (0.66-1.25) H 10/29/18 05:39 Est GFR (CKD-EPI)AfAm 59 (>60 ml/min/1.73 sqM) 10/29/18 05:39 Est GFR (CKD-EPI)NonAf 51 (>60 ml/min/1.73 sqM) 10/29/18 05:39 Glucose 90 mg/dL (74-99) 10/29/18 05:39 POC Glucose (mg/dL) 101 mg/dL (75-99) H 10/26/18 20:41 POC Glu Travel Rn Or Aisha Montoya 10/26/18 20:41 Lactic Ac Sepsis Rflx Y 10/26/18 16:55 Plasma Lactic Acid Caleb 1.2 mmol/L (0.7-2.0) 10/26/18 20:08 Calcium 8.2 mg/dL (8.4-10.2) L 10/29/18 05:39 Phosphorus 3.3 mg/dL (2.5-4.5) 10/29/18 05:39 Magnesium 1.6 mg/dL (1.6-2.3) 10/29/18 05:39 Total Bilirubin 0.8 mg/dL (0.2-1.3) 10/27/18 05:14 AST 47 U/L (17-59) 10/27/18 05:14 ALT 30 U/L (21-72) 10/27/18 05:14 Alkaline Phosphatase 53 U/L (38-126) 10/27/18 05:14 Creatine Kinase 80391 U/L (55-170) H* 10/29/18 05:39 Troponin I <0.012 ng/mL (0.000-0.034) 10/26/18 16:24 Total Protein 5.6 g/dL (6.3-8.2) L 10/27/18 05:14 Albumin 3.4 g/dL (3.5-5.0) L 10/27/18 05:14 Urine Color Light Yellow 10/26/18 17:35 Urine Appearance Cloudy (Clear) 10/26/18 17:35 Urine pH 5.5 (5.0-8.0) 10/26/18 17:35 Ur Specific [place] 1.010 (1.001-1.035) 10/26/18 17:35 Urine Protein 1+ (Negative) H 10/26/18 17:35 Urine Glucose (UA) Negative (Negative) 10/26/18 17:35 Urine Ketones Negative (Negative) 10/26/18 17:35 Urine Blood Moderate (Negative) H 10/26/18 17:35 Urine Nitrite Negative (Negative) 10/26/18 17:35 Urine Bilirubin Negative (Negative) 10/26/18 17:35 Urine Urobilinogen <2.0 mg/dL (<2.0) 10/26/18 17:35 Ur Leukocyte Esterase Negative (Negative) 10/26/18 17:35 Urine RBC 5 /hpf (0-5) 10/26/18 17:35 Urine WBC 1 /hpf (0-5) 10/26/18 17:35 Urine Bacteria Rare /hpf (None) H 10/26/18 17:35 Hyaline Casts 1 /lpf (0-2) 10/26/18 17:35 Urine Mucus Rare /hpf (None) H 10/26/18 17:35 CSF Tube Number 2 10/27/18 09:55 CSF Volume 1.0 10/27/18 09:55 CSF Appearance Clear 10/27/18 09:55 CSF Color Colorless 10/27/18 09:55 CSF RBC 1900 u/L (0-10) H 10/27/18 09:55 CSF Tot Nucleated Cells 25 u/L (0-5) H* 10/27/18 09:55 CSF Mononuclear WBCs % 25 % 10/27/18 09:55 CSF Polynuclear WBCs % 75 % 10/27/18 09:55 CSF Fresh RBCs 100 % 10/27/18 09:55 CSF Glucose 63 mg/dL (40-70) 10/27/18 09:55 CSF Total Protein 74 mg/dL (12-60) H 10/27/18 09:55 Stool Occult Blood Positive (Negative) 10/28/18 05:30 Salicylates <1.0 mg/dL 10/26/18 16:24 Urine Opiates Screen Not Detected (NotDetected) 10/26/18 17:35 Ur Oxycodone Screen Not Detected (NotDetected) 10/26/18 17:35 Urine Methadone Screen Not Detected (NotDetected) 10/26/18 17:35 Ur Propoxyphene Screen Not Detected (NotDetected) 10/26/18 17:35 Acetaminophen <10.0 ug/mL 10/26/18 16:24 Ur Barbiturates Screen Not Detected (NotDetected) 10/26/18 17:35 U Tricyclic Antidepress Not Detected (NotDetected) 10/26/18 17:35 Ur Phencyclidine Scrn Not Detected (NotDetected) 10/26/18 17:35 Ur Amphetamines Screen Not Detected (NotDetected) 10/26/18 17:35 U Methamphetamines Scrn Not Detected (NotDetected) 10/26/18 17:35 U Benzodiazepines Scrn Not Detected (NotDetected) 10/26/18 17:35 [place] <0.2 mmol/L 10/26/18 16:24 Urine Cocaine Screen Not Detected (NotDetected) 10/26/18 17:35 U Marijuana (THC) Screen Detected (NotDetected) H 10/26/18 17:35 Serum Alcohol <10 mg/dL 10/26/18 16:24 CBC & Chem 7: 10/29/18 05:39 10/29/18 05:39 Labs: Abnormal Lab Results - Last 24 Hours (Table) 10/28/18 10/29/18 10/29/18 Range/Units 05:12 05:39 05:39 RBC 3.72 L (4.30-5.90) m/uL Hgb 11.3 L (13.0-17.5) gm/dL Hct 32.7 L (39.0-53.0) % Lymphocytes # 0.7 L (1.0-4.8) k/uL ABG pH (7.35-7.45) ABG pCO2 (35-45) mmHg ABG pO2 (83-108) mmHg ABG HCO3 (21-25) mmol/L ABG O2 Saturation (94-97) % Chloride 122 H (98-107) mmol/L Carbon Dioxide 18 L (22-30) mmol/L Creatinine 1.80 H (0.66-1.25) mg/dL Calcium 8.2 L (8.4-10.2) mg/dL Creatine Kinase 9250 H* 48825 H* (55-170) U/L 10/29/18 Range/Units 08:08 RBC (4.30-5.90) m/uL Hgb (13.0-17.5) gm/dL Hct (39.0-53.0) % Lymphocytes # (1.0-4.8) k/uL ABG pH 7.33 L (7.35-7.45) ABG pCO2 33 L (35-45) mmHg ABG pO2 122 H (83-108) mmHg ABG HCO3 18 L (21-25) mmol/L ABG O2 Saturation 98.9 H (94-97) % Chloride (98-107) mmol/L Carbon Dioxide (22-30) mmol/L Creatinine (0.66-1.25) mg/dL Calcium (8.4-10.2) mg/dL Creatine Kinase (55-170) U/L Microbiology - Last 24 Hours (Table) 10/27/18 13:35 Blood Culture - Preliminary Blood No Growth after 24 hours 10/27/18 13:25 Blood Culture - Preliminary Blood No Growth after 24 hours 10/27/18 00:09 Urine Culture - Final Urine,Catheterized 10/27/18 09:55 CSF Gram Stain - Preliminary Cerebral Spinal Fluid CSF Culture - Preliminary Assessment and Plan Plan: This is a 27-year-old male who presented to the hospital with severe metabolic, possible toxic encephalopathy secondary to encephalitis of unclear etiology, possible infectious, possible toxic, acute kidney injury, acute hypo xic respiratory failure, seizure activity, severe lactic acidosis, rhabdomyolysis possibly related to drug ingestion. Patient is currently on acyclovir and Zosyn. Continue supportive care. Further recommendations as patient regresses. The above dictated assessment and findings were discussed with Dr. Rust. The impression and plan of care have been directed as dictated. Marya Red nurse practitioner acting as scribe for Dr. Rust.
[2018-10-29] MEDS ORDERED: DEXTROSE 5% IN WATER 1,000 ML with SODIUM BICARB (1 MEQ/ML) 150 ML IV SCH (10:00)
--- NOTE | 2018-10-29 10:30 | P.NPCON ---
History of Present Illness - Reason for Consult acute renal failure - History of Present Illness Reason for consultation: Acute kidney injury History of present illness: Patient is a 27-year-old male seen in consultation for acute kidney injury. Creatinine was 1.921 admission and peaked at 2.32 yesterday. It is down to 1.8 today. Patient is currently intubated and sedated. There is concern for poten tial drug overdose. Patient's drug screen was negative except for marijuana. He also underwent a lumbar puncture on admission. Cultures so far have been negative. Patient's CPK level is rising and is up to 44,794 as of this morning. There is also concern for seizure activity prior to admission. Brain CT on admission was negative. EKG revealed changes suggestive of severe diffuse cerebral dysfunction possibly from medication effect. Unknown as to what he was taking at home in terms of medications. He is currently maintained on half- normal saline at 200 mL an hour. He is nonoliguric. He is not on any vasopressors. Creatinine in 2014 was 0.86. No records available since then. Vital signs are stable. General: The patient appeared well nourished and normally developed. Intubated. HEENT: Head exam is unremarkable. Neck is without jugular venous distension. LUNGS: Lungs are clear to auscultation and percussion. Breath sounds decreased. HEART: Rate and Rhythm are regular. First and second heart sounds normal. No murmurs, rubs or gallops. ABDOMEN: Abdominal exam reveals normal bowel sounds. Non-tender and non- distended. No evidence of peritonitis. EXTREMITITES: No clubbing, cyanosis, or edema. Past Medical History Past Medical History: No Reported History Additional Past Medical History / Comment(s): scoliosis History of Any Multi-Drug Resistant Organisms: None Reported Past Surgical History: No Surgical Hx Reported Past Anesthesia/Blood Transfusion Reactions: No Reported Reaction Past Psychological History: Bipolar Smoking Status: Current every day smoker Past Alcohol Use History: Occasional Past Drug Use History: Heroin, Opiates, Prescription Drug Abuse - Past Family History Mother Family Medical History: Cancer, Congestive Heart Failure (CHF), Diabetes Mellitus, Hypertension Additional Family Medical History / Comment(s): skin cancer Father Family Medical History: Cancer, Prostate Disorder Additional Family Medical History / Comment(s): leukemia, systemic lupus erythematosus Medications and Allergies Home Medications Medication Instructions Recorded Confirmed Type No Known Home Medications 10/26/18 10/26/18 History Allergies Allergy/AdvReac Type Severity Reaction Status Date / Time No Known Allergies Allergy Verified 10/26/18 16:06 Physical Exam Vitals: Vital Signs Temp Pulse Resp BP Pulse Ox 10/29/18 08:28 66 10/29/18 08:17 66 10/29/18 08:00 98.8 F 64 16 102/58 97 10/29/18 07:30 62 16 101/57 97 10/29/18 07:00 62 16 99/54 97 10/29/18 06:30 64 16 98/52 96 10/29/18 06:00 99.5 F 68 16 100/54 96 10/29/18 05:30 72 16 109/61 98 10/29/18 05:00 101.3 F H 81 16 117/70 97 10/29/18 04:30 76 19 116/75 99 10/29/18 04:00 101.3 F H 81 19 116/69 97 10/29/18 03:30 78 18 112/64 98 10/29/18 03:19 19 10/29/18 03:16 98 10/29/18 03:00 98 19 107/59 98 10/29/18 02:30 76 18 104/60 97 10/29/18 02:00 77 20 107/60 97 10/29/18 01:30 81 18 105/57 97 10/29/18 01:00 79 20 104/59 97 10/29/18 00:30 80 17 110/57 97 10/29/18 00:11 85 18 97 10/29/18 00:00 100.1 F H 82 17 107/56 97 10/28/18 23:30 82 17 106/56 97 10/28/18 23:00 85 17 107/57 97 10/28/18 22:30 85 16 104/57 97 10/28/18 22:00 87 16 105/60 97 10/28/18 21:30 86 16 109/63 97 10/28/18 21:00 81 16 114/103 99 10/28/18 20:30 101 H 13 115/68 97 10/28/18 20:07 84 10/28/18 20:00 99.8 F H 81 16 112/62 99 10/28/18 19:58 96 10/28/18 19:30 86 18 105/61 98 10/28/18 18:30 85 18 102/58 97 10/28/18 18:00 86 17 104/60 97 10/28/18 17:30 83 17 99/56 97 10/28/18 17:00 88 18 112/63 97 10/28/18 16:30 106 H 20 105/60 98 10/28/18 16:19 87 10/28/18 16:12 93 10/28/18 16:00 98 F 82 20 110/61 99 10/28/18 15:30 85 20 107/57 99 10/28/18 15:00 85 20 101/57 100 10/28/18 14:30 85 21 106/61 99 10/28/18 14:00 99 22 102/52 99 10/28/18 13:30 85 18 100/55 97 10/28/18 13:00 80 18 105/55 99 10/28/18 12:30 82 17 109/57 100 10/28/18 12:00 97.9 F 76 16 102/55 100 10/28/18 11:30 71 16 104/58 99 10/28/18 11:23 68 10/28/18 11:17 70 10/28/18 11:00 67 16 106/61 99 10/28/18 10:30 64 17 110/56 99 Intake and Output 10/28/18 10/29/18 10/29/18 22:59 06:59 14:59 Intake Total 1600 1828.125 150 Output Total 478 1105 105 Balance 1122 723.125 45 Intake: IV 1500 1550 150 ACETAMINOPHEN IV (For NPO 100 ) 1,000 mg In Empty Bag 1 bag @ 400 mls/hr IVPB ONCE ONE Rx#:[id number] Acyclovir Sodium 650 mg 100 In Sodium Chloride 0.9% 100 ml @ 100 mls/hr IVPB Q8HR [facility] Rx#:[id number] Piperacillin-Tazobactam 3 100 100 .375 gm In Sodium Chloride 0.9% 100 ml @ 25 mls/hr IVPB Q8HR [facility] Rx# :[id number] Sodium Chloride 0.9% 1, 1200 1350 150 000 ml @ 150 mls/hr IV . Q6H40M [facility] Rx#:[id number] levETIRAcetam IV 500 mg 100 In Saline 1 100ml.bag @ 400 mls/hr IVPB Q12HR [facility] Rx#:[id number] Intake, IV Titration 100 278.125 Amount Propofol 1,000 mg In 100 278.125 Empty Bag 1 bag @ Titrate IV .Q0M [facility] Rx#: [id number] Output: Gastric Drainage 330 Urine 478 775 105 Other: Voiding Method Indwelling Catheter Indwelling Catheter Indwelling Catheter Weight 69.4 kg Results - Lab Results Most recent lab results ABG pH 7.33 (7.35-7.45) L 10/29/18 08:08 ABG pCO2 33 mmHg (35-45) L 10/29/18 08:08 ABG pO2 122 mmHg (83-108) H 10/29/18 08:08 ABG HCO3 18 mmol/L (21-25) L 10/29/18 08:08 ABG O2 Saturation 98.9 % (94-97) H 10/29/18 08:08 Calcium 8.2 mg/dL (8.4-10.2) L 10/29/18 05:39 Phosphorus 3.3 mg/dL (2.5-4.5) 10/29/18 05:39 Magnesium 1.6 mg/dL (1.6-2.3) 10/29/18 05:39 10/29/18 05:39 10/29/18 05:39 Assessment and Plan Plan: Assessment: 1. Acute kidney injury mostly prerenal secondary to hypotension and rhabdomyolysis. Creatinine peaked at 2.3 to this admission and is down to 1.8 today. 2. Rhabdomyolysis related to seizure activity. 3. Metabolic acidosis secondary to acute kidney injury and IV fluids. 4. Altered mental status related to potential drug overdose and seizures. 5. Hypomagnesemia from poor oral intake. 6. Acute hypoxic respiratory failure. Currently intubated. Plan: I will change IV fluids to isotonic sodium bicarbonate drip to be run at 200 mL an hour. Patient is acidotic and his urine is acidic as well. Monitor CPK levels. Continue to monitor renal function and urine output. Check Anca titers. Anca-positive vasculitis can be seen with cocaine overdose if mixed with levamisole. Potential transfer for neurologic workup. Magnesium being replaced. Thank you for the consultation. I will continue to follow the patient with you during his hospital stay.
[2018-10-29 11:52] VITALS: PULSE 63
[2018-10-29 12:30] VITALS: BP 108/64; TEMP 98.9
--- NOTE | 2018-10-29 12:46 | P.PN ---
Subjective Progress Note Date: 10/29/18 Principal diagnosis: Acute hypoxic respiratory failure secondary to mental status change and seizure activity, possible drug overdose. This is a 27-year-old male patient who was brought in with altered mental status. The patient was acting unusual and the need use over the past few days. The patient was found wandering in the backyard of someone's house in his underwear. The patient was saying things that did not make any sense. No reported headache or neck stiffness. No fever. He was also filing his teeth at home. According to the EMS and the firefighters, it was suspected that the patient was taking methamphetamines as well as cocaine. Note that other sharp objects also found in the house including razors. The patient was alert and oriented 1 at a time of the emergency arrival and there was no pain and the reported history was not reliable. In the emergency department, the patient had a generalized tonic-clonic seizure. He received Ativan 6 milligrams and 15 mg of Versed initiated to control his seizure and subsequently was found to be quite agitated requiring this much of benzodiazepines for control of his agitation. Subsequently, the patient was placed on propofol and he was intubated and placed on mechanical ventilator. CAT scan of the brain was negative. The patient had a lactic acid level of 12. His white cell count was at 35. His initial creatinine was at 1.4 and the CPK was 883. The urine drug screen was positive for marijuana only and alcohol was negative. Patient only had a 1 spike of temperature 100.3 and since then has been afebrile.The patient was brought into the intensive care unit. He was placed on IV fluids. Fluid resuscitation was continued throughout the night. He was kept on propofol. There was also on for any seizure activity and there was no clinical seizures noted throughout the night. His white cell count came down to 12.6. The patient lactic acidosis level dropped down to 1.2 with fluid resuscitation. The patient was given a dose of vancomycin and was kept on IV Zosyn throughout the night. The chest x-ray shows no acute abnormalities. ET tube is in a good location. Nevertheless, that he was putting out approximately the 150 mL of coffee-ground material.I had the chance to evaluate this patient this morning. This morning the patient was on mechanical ventilator sedated with propofol. His follow-up blood gases showed a pH of 7.4 with a pCO2 of 32 and pO2 187. This was on FiO2 of 40%. I noted improvement in his acidosis. I also noted improvement in his white cell count. Nevertheless the creatinine is up to 1.9. Serum bicarb is up to 19. He is producing adequate amount of urine output. The exact cause for delirium is not clear. Could be drug use. Viral encephalitis was also considered and based on that a quick lumbar puncture was done in the intensive care unit. Family is also the bedside. He is on normal saline at the rate of 75cc/An hour. No other significant issues otherwise for now. Reevaluated today on 10/28/2018, patient remains on mechanical ventilation, presently on assist control rate of 16, volume of 500 FiO2 of 40% and PEEP of 5. ABG showed a pO2 of 178 pCO2 of 33 pH of 7.33 hence cut down his FiO2 from 40% to 35% patient remains on antibiotics, remains on acyclovir, initial report on his spinal fluid was noted. Protein is slightly elevated at 74, glucose is normal at 63 total nucleated cells were 25. Labs were reviewed today, WBC count is 10 hemoglobin is 12.6 electrolytes are normal sodium is a bit elevated at 145. However his renal profile seems to be worse with a BUN of 14 and creatinine 2.32, CPK yesterday was 1537, no CPK was done today, hence I will order. Patient was still on propofol this morning at 75 mcg/kg/m, I titrated propofol down to 30 g, and the patient was noted to be extremely agitated, restless, followed simple instructions by squeezing hands and wiggling toes. But clearly was noted to be extremely agitated. Hence had to place him back on propofol. Chest x-ray was reviewed and seems to be normal. Reevaluated today on 10/29/2018, patient remains on mechanical ventilation, his ventilator settings are unchanged. Remains on assist control rate of 16, Levaquin 500 FiO2 of 35% and PEEP of 5. ABG showed a pO2 of 122 pCO2 of 33 pH of 7.33. Electrolytes showed elevated sodium of 145 right is 122 bicarb is 18 creatinine is down to 1.80, CPK took a significant rise up to 44,794 hence sodium bicarb drip was started by nephrology today. And his IV fluid rate was increased. Patient was on propofol early this morning however I was able to cut down the dose to 30 mcg/kg/m, and shortly after the decrease in the dose, patient was awakened, and he was noted to be extremely agitated, restless, unable to focus with his eyes, and could not maintain a good eye contact. There was significant upward gaze deviation of both eyes. Hence I recommended to the admitting physician that it would be best to transfer the patient to a tertiary care center, I am a bit concerned about the possibility of anoxic brain injury on this patient which could have happened prior to arrival to the hospital. His cultures remain negative. Spinal fluid remains nondiagnostic after 48 hours. EEG showed diffuse synchronous and asynchronous delta range slowing, no epileptiform focus, felt to have severe diffuse cerebral dysfunction/metabolic encephalopathy is the likely explanation to the findings. Objective - Vital Signs Vital signs: Vital Signs Temp 98.9 F 10/29/18 12:00 Pulse 63 10/29/18 12:00 Resp 16 10/29/18 12:00 BP 108/64 10/29/18 12:00 Pulse Ox 94 L 10/29/18 12:00 Intake & Output 10/28/18 10/29/18 10/29/18 18:59 06:59 18:59 Intake Total 2145.742 2728.125 950 Output Total 930 1308 630 Balance 3483.981 3061.125 320 Weight 69.4 kg Intake: IV 1950 2350 950 ACETAMINOPHEN IV (For NPO 100 ) 1,000 mg In Empty Bag 1 bag @ 400 mls/hr IVPB ONCE ONE Rx#:[id number] Acyclovir Sodium 650 mg 100 100 In Sodium Chloride 0.9% 100 ml @ 100 mls/hr IVPB Q8HR [facility] Rx#:[id number] Dextrose 5% in Water 1, 800 000 ml @ 200 mls/hr IV . Q5H45M [facility] with Sodium Bicarb (1 Meq/ml) 150 ml Rx#:[id number] Piperacillin-Tazobactam 3 200 100 .375 gm In Sodium Chloride 0.9% 100 ml @ 25 mls/hr IVPB Q8HR [facility] Rx# :[id number] Sodium Chloride 0.9% 1, 1650 1950 150 000 ml @ 150 mls/hr IV . Q6H40M [facility] Rx#:[id number] levETIRAcetam IV 500 mg 100 In Saline 1 100ml.bag @ 400 mls/hr IVPB Q12HR [facility] Rx#:[id number] Intake, IV Titration 195.742 378.125 Amount Propofol 1,000 mg In 195.742 378.125 Empty Bag 1 bag @ Titrate IV .Q0M [facility] Rx#: [id number] Output: Gastric Drainage 330 Urine 930 978 630 Other: Voiding Method Indwelling Catheter Indwelling Catheter Indwelling Catheter - Exam Physical Exam: Revealed a 27-year-old white male on mechanical ventilation, arousable, but extremely agitated when the propofol dose was cut down to half. Noted to have significant upward gaze deviation of both eyes upon awakening. Head: Atraumatic, normocephalic. HEENT:[Neck is supple.] [No neck masses.] [No thyromegaly.] PERRLA, EOMI, no icterus. Endotracheal tube and orogastric tube are intact. Chest: [Clear throughout, no crackles, no rhonchi, no wheezes.] Cardiac Exam: [Normal S1 and S2, no S3 gallop, no murmur.] Abdomen: [Soft, nontender, no megaly, no rebound, no guarding, normal bowel sounds.] Extremities: [No clubbing, no edema, no cyanosis.] Neurological Exam: On a lower dose of propofol, patient was noted to be arousable would not follow any instructions, upward gaze deviation of both eyes noted. Patient would not maintain eye contact and would not focus. Psychiatric: Could not be assessed. Skin: No rashes. Lymphatics: No lymphadenopathy. - Labs CBC & Chem 7: 10/29/18 05:39 10/29/18 05:39 Labs: Abnormal Lab Results - Last 24 Hours (Table) 10/28/18 10/29/18 10/29/18 Range/Units 05:12 05:39 05:39 RBC 3.72 L (4.30-5.90) m/uL Hgb 11.3 L (13.0-17.5) gm/dL Hct 32.7 L (39.0-53.0) % Lymphocytes # 0.7 L (1.0-4.8) k/uL ABG pH (7.35-7.45) ABG pCO2 (35-45) mmHg ABG pO2 (83-108) mmHg ABG HCO3 (21-25) mmol/L ABG O2 Saturation (94-97) % Chloride 122 H (98-107) mmol/L Carbon Dioxide 18 L (22-30) mmol/L Creatinine 1.80 H (0.66-1.25) mg/dL Calcium 8.2 L (8.4-10.2) mg/dL Creatine Kinase 9250 H* 23233 H* (55-170) U/L 10/29/18 Range/Units 08:08 RBC (4.30-5.90) m/uL Hgb (13.0-17.5) gm/dL Hct (39.0-53.0) % Lymphocytes # (1.0-4.8) k/uL ABG pH 7.33 L (7.35-7.45) ABG pCO2 33 L (35-45) mmHg ABG pO2 122 H (83-108) mmHg ABG HCO3 18 L (21-25) mmol/L ABG O2 Saturation 98.9 H (94-97) % Chloride (98-107) mmol/L Carbon Dioxide (22-30) mmol/L Creatinine (0.66-1.25) mg/dL Calcium (8.4-10.2) mg/dL Creatine Kinase (55-170) U/L Microbiology - Last 24 Hours (Table) 10/27/18 09:55 CSF Gram Stain - Preliminary Cerebral Spinal Fluid CSF Culture - Preliminary 10/27/18 13:35 Blood Culture - Preliminary Blood No Growth after 24 hours 10/27/18 13:25 Blood Culture - Preliminary Blood No Growth after 24 hours 10/27/18 00:09 Urine Culture - Final Urine,Catheterized Assessment and Plan Assessment: Impression: 1 altered mental status, suspect underlying drug overdose. 2 seizure activity likely drug-induced patient is presently on Keppra and propofol. 3 severe lactic acidosis on presentation could be related to seizure activity, strongly doubt sepsis. 4 acute hypoxic respiratory failure secondary to extreme agitation seizures, no clear-cut evidence of pneumonia on the chest x-ray. 5 bipolar disorder 6 acute kidney injury, secondary to acute rhabdomyolysis secondary to seizure activity. 7 suspect anoxic brain injury/metabolic encephalopathy, hence I recommended transferring the patient to a tertiary care center. Recommendation: Continue present mode of mechanical ventilation, continue seizure medications, continue empiric antibiotics, initiate on cefoxitin disease consultation, consider nephrology consultation, awaiting HSV PCR. 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 Discontinue if PCR is negative. Continue GI and DVT prophylaxis. Discussed the patient's condition with the admitting physician and with his mother, and we felt it would be best to transfer the patient to a tertiary care center. His admitting physician will make arrangements for him to be transferred most likely to [facility]. And this is mostly because of strong suspicion of anoxic brain injury/metabolic encephalopathy. Critical care time is 40 minutes. Time with Patient: Greater than 30
[2018-10-29] MEDS ORDERED: ACYCLOVIR SODIUM 650 MG in SODIUM CHLORIDE 0.9% 100 ML IVPB SCH (16:00)
--- NOTE | 2018-10-29 16:20 | P.CON ---
Consult Note - . Consult date: 10/29/18 Assessment/Plan:: This is a 27-year-old male patient seen in the intensive care unit intubated and on mechanical ventilation. Patient presented to [facility] on October 26 due to altered mental status. According to the chart, patient was acting strangely at home for a couple of days prior to presentation. Patient was brought in by EMS and there was suspicion for methamphetamines as well as cocaine use. There were razor blades found in the bathroom. In the emergency center, patient had a tonic-clonic seizure and patient was agitated subsequently placed on propofol and intubated at that time. CAT scan of the brain was negative. Chest x-ray showed no acute findings. Initial white count was 35.2 and currently down to 7.5. Patient had a temperature on presentation 100.3 and temperature max last night was 101.3. Initial hemoglobin was 16 in today at 11.3. Patient has had a bloody stool 2 days ago and initially bloody return from NG tube. His creatinine is 1.8 and nephrology is following for acute kidney injury. CK initially 883 and repeat 44,794. Initial lactic acid was 12. Urine drug screen was positive for marijuana only, alcohol negative. Acetaminophen and salicylate levels negative. Lumbar puncture was performed and fluid was clear, RBCs 1900, nuclear cells 25, mononuclear 25%, polynuclear 75%, RBCs 100, glucose 63 and protein 74. Cerebral spinal fluid culture reveals rare polymorphonuclear leukocytes, no organisms seen on Gram stain. No growth at 24 hours. Blood cultures no growth after 24 hours and urine culture no growth after 18 hours. Cytology from cerebral spinal fluid is pending. EEG revealed abnormal EEG findings are not epileptiform in nature may indicate severe diffuse cerebral dysfunction may in part be due to medication effect. No seizures were recorded. Herpes simplex virus testing is in process. Patient is currently on IV acyclovir, Keppra and Zosyn. Patient did not require vasopressors. Please see the consult note is dictated by nurse practitioner Marya Teofilo. As noted the patient has evidence of behavioral changes associated with fever. Lumbar punctures performed with evidence of abnormal blood glucose but elevated protein. Is noted the patient did have seizure activity. This may resulted in increased white blood cell count of the CSF as well as some increased protein. However given the patient's symptom complex it is likely that he has encephalitis. It is not clear at this point in time whether this is toxic or infectious. Request was made for a comprehensive drug screen from his serum from the time of admission, the urine drug screen was only positive for marijuana. The patient did have CSF viral testing that was for HSV-1 and 2 by PCR that is negative. This however does not rule out varicella-zoster. Because of this acyclovir should continue until this testing becomes available. Other viral encephalitis is also possible, it is quite early in the year but West Nile is not completely excluded as are other arboviruses. A viral panel has been requested and serum testing also requested. Given that the patient's neurological status is poor, and with a pause of the propofol revealed evidence of upward gaze. The patient will be transferred to a tertiary center where neurology and neurosurgical evaluations are available. As a becomes available. Would be able to send to the facility caring for him at this time. the patient has an elevated CK which is likely on the basis of his seizure activity. the profound leukocytosis at admission is multifactorial including underlying encephalitis, seizure activity, and concerns for toxic ingestion.I agree with evaluation, assessment and plan is dictated by nurse practitioner Mrs. Marya Red.
--- NOTE | 2018-10-29 20:06 | DS ---
DISCHARGE SUMMARY CHIEF COMPLAINT: Mental status changes and respiratory failure. HISTORY OF PRESENT ILLNESS AND PHYSICAL EXAM: Details of this man's history and physical can be found in the initial workup. COURSE IN HOSPITAL: After admission, he was placed on intensive care unit on ventilator support. He seemed to be stable for a day or 2, but then when efforts were made to wean off sedation with intended removal of ventilation, he was noted not to become more awake and alert and had some cranial nerve signs regarding the eyes. It was suggested that he may have underlying neurologic difficulties. His gaze was fixed in an upward position. There was also question that maybe he had seizure activity before coming in the hospital and could have suffered anoxic brain injury. Search Engine Marketing Manager at that time suggested that he be transferred to a tertiary hospital where they had neurology services and this was arranged. He was transferred to [facility]. FINAL DIAGNOSES: 1. Mental status changes. 2. Respiratory failure. 3. Probable drug effect. 4. Possible anoxic brain injury. OPERATIONS: None. CONSULTATION: Intensive Medicine. MMODL / ISIDRAN: [id number] /
[2018-10-30 13:37] LABS: C-ANCA <1:20 Titer (<1:20); P-ANCA <1:20 Titer (<1:20)
[2018-10-31 12:12] LABS: West Nile Virus IgM Antibody 0.01 INDEX (<0.90)
== END 2018-10-29 14:06 | disposition short-term general hospital (02) | DRG 917 ==
LOC: EC 15:13 → 2SICU 19:56
PROVIDERS: ADMIT Family Medicine; ATTEND Family Medicine
PROC: 0BH17EZ Insertion of Endotracheal Airway into Trachea, Via Natural or Artificial Opening (ICD-10-PCS; principal; 2018-10-26)
PROC: 5A1945Z Respiratory Ventilation, 24-96 Consecutive Hours (ICD-10-PCS; 2018-10-26)
PROC: 009U3ZX Drainage of Spinal Canal, Percutaneous Approach, Diagnostic (ICD-10-PCS; 2018-10-27)
PROC: 0D9670Z Drainage of Stomach with Drainage Device, Via Natural or Artificial Opening (ICD-10-PCS; 2018-10-27)
DX: T50.904A Poisoning by unspecified drugs, medicaments and biological substances, undetermined, initial encounter (principal); G04.90 Encephalitis and encephalomyelitis, unspecified; J96.01 Acute respiratory failure with hypoxia; G92 Toxic encephalopathy; G93.1 Anoxic brain damage, not elsewhere classified; N17.9 Acute kidney failure, unspecified; E87.2 Acidosis; M62.82 Rhabdomyolysis; K92.1 Melena; I95.9 Hypotension, unspecified; E83.42 Hypomagnesemia; G40.409 Other generalized epilepsy and epileptic syndromes, not intractable, without status epilepticus; M41.9 Scoliosis, unspecified; Z78.1 Physical restraint status; D72.829 Elevated white blood cell count, unspecified; F29 Unspecified psychosis not due to a substance or known physiological condition; F31.9 Bipolar disorder, unspecified; Z91.83 Wandering in diseases classified elsewhere; F17.200 Nicotine dependence, unspecified, uncomplicated; Z71.6 Tobacco abuse counseling; Z82.49 Family history of ischemic heart disease and other diseases of the circulatory system; Z83.3 Family history of diabetes mellitus; Z80.8 Family history of malignant neoplasm of other organs or systems; Z80.6 Family history of leukemia; Z82.69 Family history of other diseases of the musculoskeletal system and connective tissue
CPT/HCPCS: 31500; 36415; 36600; 51701; 70450; 71045; 80048; 80053; 80178; 80306; 80320; 81001; 82042; 82272; 82550; 82805; 82945; 83520; 83605; 83735; 84100; 84157; 84484; 85025; 85610; 85730; 86255; 86788; 86789; 87040; 87070; 87086; 87205; 87252; 87496; 87529; 87798; 88108; 89050; 93005; 94002; 94003; 94640; 95819; 96360; 96361; 96374; 99285

== ENCOUNTER 2019-09-28 | Emergency (ER) | payer OTHER | END 2019-09-29 00:53 | disposition home or self-care (01) | CPT/HCPCS: 36415; 93005; 80156; 80053; 83605; 83735; 85025; 83520; 99284; 96374; 96375; G0480 ×2; J2405; J1885; 80320; 80329 ==

== ENCOUNTER 2021-12-30 12:15 | Emergency (ER) | payer OTHER ==
[2021-12-30] MEDS ORDERED: HYDROmorphone 0.5 MG/0.5 ML SYRINGE IVP STA (12:19)
[2021-12-30] MEDS ORDERED: DIPH,PERTUS(ACELL)TETVAC-LF 0.5 ML VIAL IM ONE (12:19)
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
[2021-12-30 12:28] LABS: Glucose,Whole Blood 192 mg/dL (70-110)
[2021-12-30 12:32] LABS: Basophils # (A) 0.1 k/uL (0-0.2); Basophils % (A) 1 %; Eosinophils # (A) 0.3 k/uL (0-0.7); Eosinophils % (A) 2 %; HCT 44.8 % (39.0-53.0); HGB 15.5 gm/dL (13.0-17.5); Lymphocytes # (A) 1.2 k/uL (1.0-4.8); Lymphocytes % (A) 7 %; MCH 31.7 pg (25.0-35.0); MCHC 34.7 g/dL (31.0-37.0); MCV 91.5 fL (80.0-100.0); Mean Platelet Volume 7.4; Monocytes # (A) 0.8 k/uL (0-1.0); Monocytes % (A) 4 %; Neutrophils # (A) 15.3 k/uL (1.3-7.7); Neutrophils % (A) 86 %; Platelet Count 281 k/uL (150-450); RBC 4.89 m/uL (4.30-5.90); RDW 11.8 % (11.5-15.5); WBC 17.7 k/uL (3.8-10.6)
--- NOTE | 2021-12-30 12:37 | XR ---
EXAMINATION TYPE: XR pelvis AP view DATE OF EXAM: 12/30/2021 CLINICAL HISTORY: pain TECHNIQUE: Two views of the right femur are obtained. COMPARISON: None. FINDINGS: There is no acute fracture or dislocation seen of the femur. The hip and knee joints appear within normal limits. The overlying soft tissue appears unremarkable. IMPRESSION: There is no acute fracture or dislocation seen of the femur. ICD 10 NO FRACTURE, INITIAL EVALUATION
[2021-12-30 12:42] LABS: ALT 48 U/L (4-49); AST 60 U/L (17-59); African American GFR (CKD) >90 (>60 ml/min/1.73 sqM); Albumin 4.6 g/dL (3.5-5.0); Alcohol <10 mg/dL; Alkaline Phosphatase 77 U/L (38-126); Anion Gap 12 mmol/L; Blood Urea Nitrogen 16 mg/dL (9-20); Calcium 9.1 mg/dL (8.4-10.2); Carbon Dioxide 18 mmol/L (22-30); Chloride 108 mmol/L (98-107); Glucose 191 mg/dL (74-99); Non-African American GFR(CKD) >90 (>60 ml/min/1.73 sqM); Sodium 138 mmol/L (137-145); Total Bilirubin 0.6 mg/dL (0.2-1.3)
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
[2021-12-30 12:54] LABS: INR 1.1 (<1.2); Prothrombin Time 11.6 sec (9.0-12.0)
[2021-12-30 12:59] LABS: Partial Thromboplastin Time 21.2 sec (22.0-30.0)
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
[2021-12-30] MEDS ORDERED: levETIRAcetam IV 1,500 MG in SALINE 1 100ML.BAG IVPB STA (13:05)
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
[2021-12-30] MEDS ORDERED: LORazepam 2 MG/ML INJ IV STA ×2 (13:16)
[2021-12-30] MEDS ORDERED: HYDROmorphone 1 MG/ML 1 ML SYRINGE IVP STA (13:16)
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
== END 2021-12-30 15:00 | disposition other institution (70) ==
LOC: EC 12:15
DX: S72.321A Displaced transverse fracture of shaft of right femur, initial encounter for closed fracture (principal); S40.212A Abrasion of left shoulder, initial encounter; S50.811A Abrasion of right forearm, initial encounter; S60.512A Abrasion of left hand, initial encounter; S60.511A Abrasion of right hand, initial encounter; R56.9 Unspecified convulsions; Z23 Encounter for immunization; V89.2XXA Person injured in unspecified motor-vehicle accident, traffic, initial encounter
CPT/HCPCS: 36415; 86900; 86901; 80053; 84484; 85025; 85610; 85730; 86850; 80320; 72170; 73552; 71045; 72125; 70450; 71260; 74177; 90715; 99291; 96365; 96375; 96376; 90471; J2060; J1170 ×2; J1953; Q9967; 93005

== ENCOUNTER 2022-06-03 09:15 | Emergency (ER) | payer OTHER ==
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
[2022-06-03 09:45] LABS: HCT 51.8 % (39.0-53.0); HGB 16.7 gm/dL (13.0-17.5); Hypochromasia Slight; MCH 31.8 pg (25.0-35.0); MCHC 32.3 g/dL (31.0-37.0); MCV 98.4 fL (80.0-100.0); Mean Platelet Volume 7.9; Platelet Count 382 k/uL (150-450); RBC 5.27 m/uL (4.30-5.90); RDW 11.8 % (11.5-15.5)
[2022-06-03 10:05] LABS: AST 47 U/L (17-59); African American GFR (CKD) >90 (>60 ml/min/1.73 sqM); Albumin 5.4 g/dL (3.5-5.0); Alkaline Phosphatase 170 U/L (38-126); Anion Gap 27 mmol/L; Blood Urea Nitrogen 12 mg/dL (9-20); Calcium 9.3 mg/dL (8.4-10.2); Carbamazepine (Tegretol) 5.8 ug/mL; Chloride 107 mmol/L (98-107); Glucose 338 mg/dL (74-99); Magnesium 3.6 mg/dL (1.6-2.3); Non-African American GFR(CKD) 82 (>60 ml/min/1.73 sqM); Sodium 140 mmol/L (137-145); Total Bilirubin 0.3 mg/dL (0.2-1.3)
[2022-06-03 10:09] LABS: ALT 45 U/L (4-49)
[2022-06-03] MEDS ORDERED: HYDROmorphone 0.5 MG/0.5 ML SYRINGE IVP STA ×3 (10:09→15:28)
[2022-06-03] MEDS ORDERED: KETOROLAC 15 MG/ML 1 ML VIAL IVP STA (10:10)
[2022-06-03] MEDS ORDERED: ONDANSETRON 4 MG/2 ML VIAL IVP STA (10:21)
[2022-06-03 10:30] LABS: Carbon Dioxide 6 mmol/L (22-30)
[2022-06-03] MEDS ORDERED: SODIUM CHLORIDE 0.9% 1,000 ML IV ONE (10:38)
[2022-06-03] MEDS ORDERED: levETIRAcetam IV 1,000 MG in SALINE 1 100ML.BAG IVPB STA (11:16)
[2022-06-03 11:32] LABS: Band Neutrophils % 3 %; Metamyelocytes % 1 %; Myelocytes % 1 %; Neutrophils % (M) 74 %; Nucleated Red Blood Cells 0 /100 WBC (0-0); Total Cells Counted 200
[2022-06-03] MEDS ORDERED: cefTRIAXone IN SWFI 1,000 MG/10 ML SYRINGE IVP STA (12:49)
[2022-06-03 12:52] VITALS: TEMP 98.4
--- NOTE | 2022-06-03 12:53 | XR ---
EXAMINATION TYPE: XR chest 1V DATE OF EXAM: 06/03/2022 COMPARISON: 12/30/2021 HISTORY: 31-year-old male difficulty breathing, shortness of breath TECHNIQUE: Single frontal view of the chest is obtained. FINDINGS: Limited portable supine AP exam. Heart is accentuated upper limits of normal. Hazy upper l lennox densities relating to overlying soft tissue. Fracture of the right lateral seventh rib shows some surrounding callus formation. IMPRESSION: 1. A subacute, healing fracture of the right lateral seventh rib. Clinically correlate. 2. Otherwise, allowing for positioning and portable technique, no definite acute process.
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
[2022-06-03 13:17] VITALS: BP 147/99; PULSE 87; RESP 20
--- NOTE | 2022-06-03 13:41 | CT ---
EXAMINATION TYPE: CT brain lilo wo con DATE OF EXAM: 06/03/2022 COMPARISON: 12/30/2021 HISTORY: 31-year-old male with seizure, trauma, pain CT DLP: 2930.4 mGycm Automated exposure control for dose reduction was used. Technique: Examination of the head was done in axial plane without intravenous contrast. Coronal and sagittal reconstructions performed. CT of the cervical spine was obtained in axial plane without intravenous injection of contrast mater ial. Coronal and sagittal reformatted images were obtained from the axial views for evaluation of f ractures, spinal alignment and canal. FINDINGS: Head: Patient motion limits evaluation. Allowing for the motion artifacts, there is no evidence of acute i ntracranial hemorrhage, acute ischemic changes, mass, mass-effect, or extra-axial fluid collection. There is no effacement of cerebral sulci or basal subarachnoid cisterns. There is no hydrocephalus. There is no midline shift. Meléndze-white matter distinction is preserved. Paranasal sinuses and mastoid air cells appear well pneumatized. Orbits and globes appear intact. No calvarial fracture seen. Cervical spine: The cervical spine was rescanned due to motion. No craniocervical junction and midbody, predental space widening, prevertebral soft tissue swelling. Preserved alignment of the cervical spine. No acute fracture is identified. No evident canal compromise. Sagittal and coronal reformatted images confirm above findings. COMBINED IMPRESSION: 1. Motion artifact limiting assessment. No acute intracranial abnormality seen. 2. The cervical spine was rescanned due to extensive motion on the first scan. No acute fracture or m alalignment of the cervical spine.
== END 2022-06-03 15:37 | disposition other institution (70) ==
LOC: EC 09:15
DX: S32.401A Unspecified fracture of right acetabulum, initial encounter for closed fracture (principal); S72.002A Fracture of unspecified part of neck of left femur, initial encounter for closed fracture; G40.911 Epilepsy, unspecified, intractable, with status epilepticus; F17.290 Nicotine dependence, other tobacco product, uncomplicated; Z88.8 Allergy status to other drugs, medicaments and biological substances; X58.XXXA Exposure to other specified factors, initial encounter
CPT/HCPCS: 36415; 80156; 80053; 82009; 83605; 83735; 85025; 87040; 73502; 71045; 72125; 70450; 99285; 96365; 96375 ×8; 96361 ×4; J3360; J2405; J0696; J1885; J1953; J1170

== ENCOUNTER 2023-08-20 11:50 | Emergency (ER) | payer OTHER ==
[2023-08-20] MEDS: SODIUM CHLORIDE 0.9% 1,000 ML IV STA (12:20)
--- NOTE | 2023-08-20 12:40 | ED ---
Seizure HPI - General Chief Complaint: Seizure Stated Complaint: Seizure Time Seen by Provider: 08/20/23 12:05 Source: patient, EMS, RN notes reviewed Mode of arrival: EMS Limitations: no limitations - History of Present Illness Initial Comments: This is a 32-year-old male who presents to the emergency department for a seizure. Patient has a substantial seizure history. States that he had an unwitnessed seizure today. He felt his legs become weak and fell to the ground. He states that he started to crawl outside to his neighbor's house afterwards and used Rosalie on his phone to call EMS. Patient denies any pain at this time, states that he feels anxious and like he is having a panic attack. He has been having absence seizures over the last several days, and his last grand mal seizure was about 10 days ago. Currently follows with neurology in [place], [place]. He does note that he has not felt well for the last week and has no appetite. Denies any nausea associated with this. MD Complaint: seizure - Related Data Home Medications Medication Instructions Recorded Confirmed Brivaracetam [Briviact] 100 mg PO BID 06/03/22 06/03/22 Lacosamide 150 mg PO BID 06/03/22 06/03/22 QUEtiapine FUMARATE 50 mg PO HS 06/03/22 06/03/22 carBAMazepine [carBAMazepine ER] 400 mg PO Q12H 06/03/22 06/03/22 Allergies Allergy/AdvReac Type Severity Reaction Status Date / Time lorazepam [From Ativan] AdvReac Confusion Verified 06/03/22 09:21 Review of Systems ROS Statement: Those systems with pertinent positive or pertinent negative responses have been documented in the HPI. ROS Other: All systems not noted in ROS Statement are negative. Past Medical History Past Medical History: Seizure Disorder Additional Past Medical History / Comment(s): scoliosis, encephalitis causing seizures 2018 History of Any Multi-Drug Resistant Organisms: None Reported Past Surgical History: Orthopedic Surgery Additional Past Surgical History / Comment(s): Right femur Past Anesthesia/Blood Transfusion Reactions: No Reported Reaction Past Psychological History: Bipolar Smoking Status: Vaper Past Alcohol Use History: Occasional Past Drug Use History: Heroin, Opiates, Prescription Drug Abuse - Past Family History Mother Family Medical History: Cancer, Congestive Heart Failure (CHF), Diabetes Mellitus, Hypertension Additional Family Medical History / Comment(s): skin cancer Father Family Medical History: Cancer, Prostate Disorder Additional Family Medical History / Comment(s): leukemia, systemic lupus erythematosus General Exam Limitations: no limitations General appearance: alert, anxious Head exam: Present: atraumatic, normocephalic, normal inspection Respiratory exam: Present: normal lung sounds bilaterally. Absent: respiratory distress, wheezes, rales, rhonchi, stridor Cardiovascular Exam: Present: regular rate, normal rhythm, normal heart sounds. Absent: systolic murmur, diastolic murmur, rubs, gallop, clicks Neurological exam: Present: alert, oriented X3, CN II-XII intact Psychiatric exam: Present: normal affect, normal mood Skin exam: Present: warm, dry, intact, normal color. Absent: rash Course Vital Signs 08/20/23 08/20/23 11:57 16:57 Pulse Rate 98 82 Respiratory 22 18 Rate Blood Pressure 132/95 123/88 O2 Sat by Pulse 99 99 Oximetry Medical Decision Making - Medical Decision Making This is a 32-year-old male who presents to the emergency department for a seizure. Was pt. sent in by a medical professional or institution? @ -No Did you speak to anyone other than the patient for history? @ -No Did you review nursing and triage notes? @ -Yes, and I agree, it is accurate with regards to the patient's symptoms. Were old charts reviewed? @ -No Differential Diagnosis? @ -Differential Seizure: Recurrent seizure disorder, febrile seizure, alcohol withdrawal, stimulants, meningitis, encephalitis, intercranial hemorrhage, intracranial tumor, stroke, eclampsia, thyrotoxicosis, hypocalcemia, hyponatremia, hypernatremia, hypomagn esemia, psychogenic, this is not meant to be an all-inclusive list. EKG interpreted by me (3pts min.)? @ -EKG interpreted by me demonstrating the following: Sinus rhythm. Ventricular rate 77 beats per minute, UT interval 160 ms, QRS duration 99 ms, QTC 375 ms. X-rays interpreted by me (1pt min.)? @ -Not obtained CT interpreted by me (1pt min.)? @ -Not obtained U/S interpreted by me (1pt. min.)? @ -Not obtained What testing was considered but not performed? (CT, X-rays, U/S, labs)? Why? @ -None What meds were considered but not given? Why? @ -None Did you discuss the management of the patient with other professionals? @ -No Did you reconcile home meds? @ -No Was smoking cessation discussed for >3mins.? @ -I discussed smoking cessation for greater than 3 minutes. The risk of smoking were discussed with the patient including but not limited to risks of cancer, stroke, coronary artery disease and COPD. Also discussed with patient were multiple methods of quitting smoking. Lastly we discussed the financial cost of smoking. Was critical care preformed (if so, how long)? @ -No Were there social determinants of health that impacted care today? How? (Homelessness, low income, unemployed, alcoholism, drug addiction, transportation, low edu. Level, literacy, decrease access to med. care, [facility], rehab)? @ -Polysubstance abuse, increasing his risk for other health problems and likely lowering his seizure threshold. Was there de-escalation of care discussed even if they declined? (Discuss DNR or withdrawal of care, Hospice)? @ -No What co-morbidities impacted this encounter? (DM, HTN, Smoking, COPD, CAD, Canc er, CVA, Hep., AIDS, mental health diagnosis, sleep apnea, morbid obesity)? @ -Seizure disorder, polysubstance abuse, smoking Was patient admitted / discharged? @ -Discharged. Lab work obtained revealing an elevated lactic acid consistent with recent seizure activity. Urinalysis positive for marijuana and benzodiazepines. Benzodiazepines were administered here and patient takes these at home. Alcohol level negative. COVID, influenza, and RSV testing were negative. Patient given IV fluids and Valium for his panic attack with improv ement in symptoms. Patient at that point felt stable for discharge home. Tegretol and lacosamide levels were ordered, however advised that these are send out tests and results are not immediately available. Advised close follow-up with neurology and patient advised that he cannot drive for 6 months following seizure activity. Undiagnosed new problem with uncertain prognosis? @ -None Drug Therapy requiring intensive monitoring for toxicity (Heparin, Nitro, Insulin, Cardizem)? @ -None Were any procedures done? @ -None Diagnosis/symptom? @ -Seizure Acute, or Chronic, or Acute on Chronic? @ -Acute Uncomplicated (without systemic symptoms) or Complicated (systemic symptoms)? @ -Uncomplicated Side effects of treatment? @ -None Exacerbation, Progression, or Severe Exacerbation] @ -Not applicable Poses a threat to life or bodily function? @ -This in general poses risk to his function. Return precautions reviewed in depth, the patient is instructed to return to the emergency department with any new, worsening, or concerning symptoms. Patient verbalized understanding. This case was discussed in detail with the attending ED physician, Dr. Zafar. Presentation, findings, and treatment plan discussed in detail as well. - Lab Data Result diagrams: 08/20/23 13:07 08/20/23 13:07 Lab Results 08/20/23 08/20/23 08/20/23 Range/Units 13:07 13:07 13:07 WBC 5.1 (3.8-10.6) k/uL RBC 4.82 (4.30-5.90) m/uL Hgb 15.2 (13.0-17.5) gm/dL Hct 43.2 (39.0-53.0) % MCV 89.5 (80.0-100.0) fL MCH 31.5 (25.0-35.0) pg MCHC 35.2 (31.0-37.0) g/dL RDW 12.0 (11.5-15.5) % Plt Count 297 (150-450) k/uL MPV 7.9 Neutrophils % 74 % Lymphocytes % 13 % Monocytes % 10 % Eosinophils % 1 % Basophils % 1 % Neutrophils # 3.8 (1.3-7.7) k/uL Lymphocytes # 0.7 L (1.0-4.8) k/uL Monocytes # 0.5 (0-1.0) k/uL Eosinophils # 0.1 (0-0.7) k/uL Basophils # 0.0 (0-0.2) k/uL Sodium 141 (137-145) mmol/L Potassium 3.6 (3.5-5.1) mmol/L Chloride 107 (98-107) mmol/L Carbon Dioxide 25 (22-30) mmol/L Anion Gap 9 mmol/L BUN 12 (9-20) mg/dL Creatinine 0.83 (0.66-1.25) mg/dL Est GFR (CKD-EPI)AfAm >90 (>60 ml/min/1.73 sqM) Est GFR (CKD-EPI)NonAf >90 (>60 ml/min/1.73 sqM) Glucose 122 H (74-99) mg/dL Lactic Ac Sepsis Rflx Plasma Lactic Acid Caleb 3.9 H* (0.7-2.0) mmol/L Calcium 9.6 (8.4-10.2) mg/dL Magnesium 2.0 (1.6-2.3) mg/dL Total Bilirubin 0.5 (0.2-1.3) mg/dL AST 20 (17-59) U/L ALT 24 (4-49) U/L Alkaline Phosphatase 106 (38-126) U/L Total Protein 7.0 (6.3-8.2) g/dL Albumin 4.4 (3.5-5.0) g/dL Urine Color Urine Appearance (Clear) Urine pH (5.0-8.0) Ur Specific [place] (1.001-1.035) Urine Protein (Negative) Urine Glucose (UA) (Negative) Urine Ketones (Negative) Urine Blood (Negative) Urine Nitrite (Negative) Urine Bilirubin (Negative) Urine Urobilinogen (<2.0) mg/dL Ur Leukocyte Esterase (Negative) Urine Opiates Screen (NotDetected) Ur Oxycodone Screen (NotDetected) Urine Methadone Screen (NotDetected) Ur Barbiturates Screen (NotDetected) Carbamazepine ug/mL U Tricyclic Antidepress (NotDetected) Ur Phencyclidine Scrn (NotDetected) Ur Amphetamines Screen (NotDetected) U Methamphetamines Scrn (NotDetected) U Benzodiazepines Scrn (NotDetected) Urine Cocaine Screen (NotDetected) U Marijuana (THC) Screen (NotDetected) Serum Alcohol <10 mg/dL Influenza Type A (PCR) (Not Detectd) Influenza Type B (PCR) (Not Detectd) RSV (PCR) (Not Detectd) SARS-CoV-2 (PCR) (Not Detectd) 08/20/23 08/20/23 08/20/23 Range/Units 13:43 14:04 14:04 WBC (3.8-10.6) k/uL RBC (4.30-5.90) m/uL Hgb (13.0-17.5) gm/dL Hct (39.0-53.0) % MCV (80.0-100.0) fL MCH (25.0-35.0) pg MCHC (31.0-37.0) g/dL RDW (11.5-15.5) % Plt Count (150-450) k/uL MPV Neutrophils % % Lymphocytes % % Monocytes % % Eosinophils % % Basophils % % Neutrophils # (1.3-7.7) k/uL Lymphocytes # (1.0-4.8) k/uL Monocytes # (0-1.0) k/uL Eosinophils # (0-0.7) k/uL Basophils # (0-0.2) k/uL Sodium (137-145) mmol/L Potassium (3.5-5.1) mmol/L Chloride (98-107) mmol/L Carbon Dioxide (22-30) mmol/L Anion Gap mmol/L BUN (9-20) mg/dL Creatinine (0.66-1.25) mg/dL Est GFR (CKD-EPI)AfAm (>60 ml/min/1.73 sqM) Est GFR (CKD-EPI)NonAf (>60 ml/min/1.73 sqM) Glucose (74-99) mg/dL Lactic Ac Sepsis Rflx Y Plasma Lactic Acid Caleb (0.7-2.0) mmol/L Calcium (8.4-10.2) mg/dL Magnesium (1.6-2.3) mg/dL Total Bilirubin (0.2-1.3) mg/dL AST (17-59) U/L ALT (4-49) U/L Alkaline Phosphatase (38-126) U/L Total Protein (6.3-8.2) g/dL Albumin (3.5-5.0) g/dL Urine Color Urine Appearance (Clear) Urine pH (5.0-8.0) Ur Specific [place] (1.001-1.035) Urine Protein (Negative) Urine Glucose (UA) (Negative) Urine Ketones (Negative) Urine Blood (Negative) Urine Nitrite (Negative) Urine Bilirubin (Negative) Urine Urobilinogen (<2.0) mg/dL Ur Leukocyte Esterase (Negative) Urine Opiates Screen Not Detected (NotDetected) Ur Oxycodone Screen Not Detected (NotDetected) Urine Methadone Screen Not Detected (NotDetected) Ur Barbiturates Screen Not Detected (NotDetected) Carbamazepine ug/mL U Tricyclic Antidepress Not Detected (NotDetected) Ur Phencyclidine Scrn Not Detected (NotDetected) Ur Amphetamines Screen Not Detected (NotDetected) U Methamphetamines Scrn Not Detected (NotDetected) U Benzodiazepines Scrn Detected H (NotDetected) Urine Cocaine Screen Not Detected (NotDetected) U Marijuana (THC) Screen Detected H (NotDetected) Serum Alcohol mg/dL Influenza Type A (PCR) Not Detected (Not Detectd) Influenza Type B (PCR) Not Detected (Not Detectd) RSV (PCR) Not Detected (Not Detectd) SARS-CoV-2 (PCR) Not Detected (Not Detectd) 08/20/23 08/20/23 08/20/23 Range/Units 14:04 15:45 16:13 WBC (3.8-10.6) k/uL RBC (4.30-5.90) m/uL Hgb (13.0-17.5) gm/dL Hct (39.0-53.0) % MCV (80.0-100.0) fL MCH (25.0-35.0) pg MCHC (31.0-37.0) g/dL RDW (11.5-15.5) % Plt Count (150-450) k/uL MPV Neutrophils % % Lymphocytes % % Monocytes % % Eosinophils % % Basophils % % Neutrophils # (1.3-7.7) k/uL Lymphocytes # (1.0-4.8) k/uL Monocytes # (0-1.0) k/uL Eosinophils # (0-0.7) k/uL Basophils # (0-0.2) k/uL Sodium (137-145) mmol/L Potassium (3.5-5.1) mmol/L Chloride (98-107) mmol/L Carbon Dioxide (22-30) mmol/L Anion Gap mmol/L BUN (9-20) mg/dL Creatinine (0.66-1.25) mg/dL Est GFR (CKD-EPI)AfAm (>60 ml/min/1.73 sqM) Est GFR (CKD-EPI)NonAf (>60 ml/min/1.73 sqM) Glucose (74-99) mg/dL Lactic Ac Sepsis Rflx Plasma Lactic Acid Caleb 0.7 (0.7-2.0) mmol/L Calcium (8.4-10.2) mg/dL Magnesium (1.6-2.3) mg/dL Total Bilirubin (0.2-1.3) mg/dL AST (17-59) U/L ALT (4-49) U/L Alkaline Phosphatase (38-126) U/L Total Protein (6.3-8.2) g/dL Albumin (3.5-5.0) g/dL Urine Color Colorless Urine Appearance Clear (Clear) Urine pH 7.5 (5.0-8.0) Ur Specific [place] 1.012 (1.001-1.035) Urine Protein Negative (Negative) Urine Glucose (UA) Trace H (Negative) Urine Ketones Trace H (Negative) Urine Blood Negative (Negative) Urine Nitrite Negative (Negative) Urine Bilirubin Negative (Negative) Urine Urobilinogen <2.0 (<2.0) mg/dL Ur Leukocyte Esterase Negative (Negative) Urine Opiates Screen (NotDetected) Ur Oxycodone Screen (NotDetected) Urine Methadone Screen (NotDetected) Ur Barbiturates Screen (NotDetected) Carbamazepine 9.5 ug/mL U Tricyclic Antidepress (NotDetected) Ur Phencyclidine Scrn (NotDetected) Ur Amphetamines Screen (NotDetected) U Methamphetamines Scrn (NotDetected) U Benzodiazepines Scrn (NotDetected) Urine Cocaine Screen (NotDetected) U Marijuana (THC) Screen (NotDetected) Serum Alcohol mg/dL Influenza Type A (PCR) (Not Detectd) Influenza Type B (PCR) (Not Detectd) RSV (PCR) (Not Detectd) SARS-CoV-2 (PCR) (Not Detectd) Disposition Clinical Impression: Nicotine dependence, Generalized seizure Disposition: HOME SELF-CARE Instructions (If sedation given, give patient instructions): Seizure/Epilepsy Discharge Instructions & Follow-Up Additional Instructions: Return to the emergency department with any new, worsening, or concerning symptoms. The Tegretol and lacosamide levels are send out tests. You can co ntact the hospital in the next couple of days for the results. Follow up with your neurologist. Is patient prescribed a controlled substance at d/c from ED?: No Referrals: Steven rGeenfield MD [Primary Care Provider] - 1-2 days Time of Disposition: 15:47
[2023-08-20 13:33] LABS: Basophils % (A) 1 %; Eosinophils # (A) 0.1 k/uL (0-0.7); Eosinophils % (A) 1 %; HCT 43.2 % (39.0-53.0); HGB 15.2 gm/dL (13.0-17.5); Lymphocytes # (A) 0.7 k/uL (1.0-4.8); Lymphocytes % (A) 13 %; MCH 31.5 pg (25.0-35.0); MCHC 35.2 g/dL (31.0-37.0); MCV 89.5 fL (80.0-100.0); Mean Platelet Volume 7.9; Monocytes # (A) 0.5 k/uL (0-1.0); Monocytes % (A) 10 %; Neutrophils # (A) 3.8 k/uL (1.3-7.7); Neutrophils % (A) 74 %; Platelet Count 297 k/uL (150-450); RBC 4.82 m/uL (4.30-5.90); WBC 5.1 k/uL (3.8-10.6)
[2023-08-20 13:37] LABS: Potassium 3.6 mmol/L (3.5-5.1)
[2023-08-20 13:38] LABS: ALT 24 U/L (4-49); AST 20 U/L (17-59); African American GFR (CKD) >90 (>60 ml/min/1.73 sqM); Albumin 4.4 g/dL (3.5-5.0); Alcohol <10 mg/dL; Alkaline Phosphatase 106 U/L (38-126); Anion Gap 9 mmol/L; Blood Urea Nitrogen 12 mg/dL (9-20); Calcium 9.6 mg/dL (8.4-10.2); Carbon Dioxide 25 mmol/L (22-30); Chloride 107 mmol/L (98-107); Glucose 122 mg/dL (74-99); Non-African American GFR(CKD) >90 (>60 ml/min/1.73 sqM); Sodium 141 mmol/L (137-145); Total Bilirubin 0.5 mg/dL (0.2-1.3)
[2023-08-20 14:44] LABS: Appearance,Urine Clear (Clear); Bilirubin,Urine Negative (Negative); Blood,Urine Negative (Negative); Color,Urine Colorless; Glucose,Urine (UA) Trace (Negative); Ketones,Urine Trace (Negative); Leukocyte Esterase,Urine Negative (Negative); Nitrite,Urine Negative (Negative); PH, Urine 7.5 (5.0-8.0); Protein,Urine Negative (Negative); Specific Gravity,Urine 1.012 (1.001-1.035); Urobilinogen,Urine <2.0 mg/dL (<2.0)
[2023-08-20 14:58] LABS: Amphetamine Screen,Urine Not Detected (NotDetected); Barbiturate Screen,Urine Not Detected (NotDetected); Benzodiazepines Screen,Urine Detected (NotDetected); Cocaine Screen,Urine Not Detected (NotDetected); Methadone Screen, Urine Not Detected (NotDetected); Opiate Screen,Urine Not Detected (NotDetected); Oxycodone Screen, Urine Not Detected (NotDetected); Phencyclidine Screen,Urine Not Detected (NotDetected); Tricyclic Antidepressant,Urine Not Detected (NotDetected); Urn Cannabinoid Scrn Detected (NotDetected)
[2023-08-20 17:25] VITALS: BP 123/88; PULSE 82; RESP 18
== END 2023-08-20 17:04 | disposition home or self-care (01) ==
LOC: EC 11:50
DX: G40.409 Other generalized epilepsy and epileptic syndromes, not intractable, without status epilepticus (principal); F17.290 Nicotine dependence, other tobacco product, uncomplicated; F31.9 Bipolar disorder, unspecified; F11.90 Opioid use, unspecified, uncomplicated; F15.90 Other stimulant use, unspecified, uncomplicated; Z88.8 Allergy status to other drugs, medicaments and biological substances; Z79.899 Other long term (current) drug therapy; Z20.822 Contact with and (suspected) exposure to COVID-19
CPT/HCPCS: 36415; 93005; 80156; 80053; 83605; 83735; 85025; 81003; 80306; 80235; 87636; 99285; 96374; 96361; G0480; J3360; 80320

== ENCOUNTER 2024-02-12 02:25 | Observation (INO) | payer OTHER ==
[2024-02-12] MEDS: LORazepam 2 MG/ML INJ IV STA (02:40)
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
[2024-02-12 03:08] LABS: Basophils % (A) 0 %; Eosinophils # (A) 0.1 k/uL (0-0.7); Eosinophils % (A) 1 %; HCT 46.3 % (39.0-53.0); HGB 15.7 gm/dL (13.0-17.5); Lymphocytes # (A) 0.8 k/uL (1.0-4.8); Lymphocytes % (A) 6 %; MCHC 33.9 g/dL (31.0-37.0); MCV 91.5 fL (80.0-100.0); Mean Platelet Volume 7.1; Monocytes # (A) 0.5 k/uL (0-1.0); Monocytes % (A) 4 %; Neutrophils # (A) 11.1 k/uL (1.3-7.7); Neutrophils % (A) 89 %; Platelet Count 316 k/uL (150-450); RBC 5.07 m/uL (4.30-5.90); RDW 11.9 % (11.5-15.5); WBC 12.5 k/uL (3.8-10.6)
[2024-02-12] MEDS: ONDANSETRON 4 MG/2 ML VIAL IVP STA ×2 (03:20→04:24)
[2024-02-12 03:32] LABS: ALT 47 U/L (4-49); African American GFR (CKD) >90 (>60 ml/min/1.73 sqM); Albumin 5.2 g/dL (3.5-5.0); Alcohol <10 mg/dL; Anion Gap 14 mmol/L; Blood Urea Nitrogen 18 mg/dL (9-20); Calcium 9.6 mg/dL (8.4-10.2); Carbon Dioxide 21 mmol/L (22-30); Chloride 102 mmol/L (98-107); Glucose 161 mg/dL (74-99); Non-African American GFR(CKD) >90 (>60 ml/min/1.73 sqM); Sodium 137 mmol/L (137-145); Total Bilirubin 0.6 mg/dL (0.2-1.3); Total Protein 7.6 g/dL (6.3-8.2)
[2024-02-12 04:04] LABS: AST 43 U/L (17-59); Alkaline Phosphatase 87 U/L (38-126); Magnesium 1.8 mg/dL (1.6-2.3); Potassium 4.6 mmol/L (3.5-5.1)
[2024-02-12] MEDS ORDERED: KETAMINE 10 MG/ML 20 ML VIAL IM PRN (05:11)
[2024-02-12] MEDS: KETAMINE 50 MG/ML 10 ML VIAL IM PRN (05:15)
[2024-02-12] MEDS ORDERED: KETAMINE 50 MG/ML 10 ML VIAL IM PRN (05:20)
[2024-02-12] MEDS: MIDAZOLAM 1 MG/ML 5 ML VIAL IV STA (05:42)
--- NOTE | 2024-02-12 06:27 | CT ---
EXAM: CT Head Without Intravenous Contrast CLINICAL HISTORY: ITS.REASON CT Reason: MS change TECHNIQUE: Axial computed tomography images of the head/brain without intravenous contrast. CTDI is 49.2 mGy and DLP is 1197.4 mGy-cm. This CT exam was performed using one or more of the following dose reduction techniques: automated exposure control, adjustment of the mA and/or kV according to patient size, and/or use of iterative reconstruction technique. COMPARISON: No relevant prior studies available. FINDINGS: Brain: Unremarkable. No hemorrhage. No significant white matter disease. No edema. Ventricles: Unremarkable. No ventriculomegaly. Bones/joints: Unremarkable. No acute fracture. Soft tissues: Unremarkable. Sinuses: Unremarkable as visualized. Mastoid air cells: Unremarkable as visualized. No mastoid effusion. IMPRESSION: No acute intracranial abnormality. Consider MRI if there is further concern.
[2024-02-12] MEDS: levETIRAcetam 500 MG TAB PO STA (08:19)
[2024-02-12] MEDS: LACOSAMIDE 50 MG TABLET PO STA (08:19)
[2024-02-12] MEDS: carBAMazepine 200 MG TAB PO STA (08:19)
[2024-02-12] MEDS ORDERED: Lacosamide IV (ages 17+ yrs) 200 MG/20 ML ML IVP SCH (09:00)
[2024-02-12 09:15] LABS: Carbamazepine (Tegretol) 8.6 UG/ML (4.0-12.0)
[2024-02-12] MEDS ORDERED: ONDANSETRON 4 MG/2 ML VIAL IVP PRN (10:14)
[2024-02-12] MEDS ORDERED: NALOXONE 0.4 MG/ML 1 ML VIAL IV PRN (10:14)
[2024-02-12] MEDS: ZIPRASIDONE 20 MG VIAL IM STA (11:37)
--- NOTE | 2024-02-12 11:49 | ED ---
Medical Decision Making - Medical Decision Making Patient once again became agitated and threatening to staff stating he will kill. Patient placed once again in restraints. He was given Geodon for his agitation. [id number] note completed by myself. Psychiatry consulted in addition to neurology. Sitter ordered. Diagnosis/symptom? @ -Agitation in postictal state Acute, or Chronic, or Acute on Chronic? @ -Acute Uncomplicated (without systemic symptoms) or Complicated (systemic symptoms)? @ -complicated Side effects of treatment? @ -None Exacerbation, Progression, or Severe Exacerbation] @ -No Poses a threat to life or bodily function? @ -Threatens others. - Lab Data Result diagrams: 02/12/24 02:34 02/12/24 02:34 Lab Results 02/12/24 02/12/24 Range/Units 02:34 02:34 WBC 12.5 H (3.8-10.6) k/uL RBC 5.07 (4.30-5.90) m/uL Hgb 15.7 (13.0-17.5) gm/dL Hct 46.3 (39.0-53.0) % MCV 91.5 (80.0-100.0) fL MCH 31.0 (25.0-35.0) pg MCHC 33.9 (31.0-37.0) g/dL RDW 11.9 (11.5-15.5) % Plt Count 316 (150-450) k/uL MPV 7.1 Neutrophils % 89 % Lymphocytes % 6 % Monocytes % 4 % Eosinophils % 1 % Basophils % 0 % Neutrophils # 11.1 H (1.3-7.7) k/uL Lymphocytes # 0.8 L (1.0-4.8) k/uL Monocytes # 0.5 (0-1.0) k/uL Eosinophils # 0.1 (0-0.7) k/uL Basophils # 0.0 (0-0.2) k/uL Sodium 137 (137-145) mmol/L Potassium 4.6 (3.5-5.1) mmol/L Chloride 102 (98-107) mmol/L Carbon Dioxide 21 L (22-30) mmol/L Anion Gap 14 mmol/L BUN 18 (9-20) mg/dL Creatinine 0.80 (0.66-1.25) mg/dL Est GFR (CKD-EPI)AfAm >90 (>60 ml/min/1.73 sqM) Est GFR (CKD-EPI)NonAf >90 (>60 ml/min/1.73 sqM) Glucose 161 H (74-99) mg/dL Calcium 9.6 (8.4-10.2) mg/dL Magnesium 1.8 (1.6-2.3) mg/dL Total Bilirubin 0.6 (0.2-1.3) mg/dL AST 43 (17-59) U/L ALT 47 (4-49) U/L Alkaline Phosphatase 87 (38-126) U/L Total Protein 7.6 (6.3-8.2) g/dL Albumin 5.2 H (3.5-5.0) g/dL Carbamazepine 8.6 (4.0-12.0) UG/ML Serum Alcohol <10 mg/dL Disposition Clinical Impression: Seizure disorder, Agitation requiring sedation protocol Disposition: ADMITTED IP TO THIS [facility] Condition: Stable Procedures - Restraint - Face to Face Restraint Occurrence 1 Patient's Immediate Situation: Endangers others' safety, Endangers staff safety, Violent behavior Patient's Reaction to the Intervention: Hostile Patient's Medical & Behavioral Condition: Awake, Alert Face to Face Eval of Restraint Date: 02/12/24 Face to Face Eval of Restraint Time: 11:25
[2024-02-12 12:21] LABS: Urn Cannabinoid Scrn Detected (NotDetected)
[2024-02-12 12:22] LABS: Amphetamine Screen,Urine Not Detected (NotDetected); Barbiturate Screen,Urine Not Detected (NotDetected); Benzodiazepines Screen,Urine Detected (NotDetected); Cocaine Screen,Urine Not Detected (NotDetected); Methadone Screen, Urine Not Detected (NotDetected); Opiate Screen,Urine Detected (NotDetected); Oxycodone Screen, Urine Not Detected (NotDetected); Phencyclidine Screen,Urine Not Detected (NotDetected); Tricyclic Antidepressant,Urine Not Detected (NotDetected)
[2024-02-12] MEDS: HYDROcodone/APAP 7.5-325MG 1 EACH TAB PO SCH (15:16)
[2024-02-12] MEDS: HALOPERIDOL LACTATE 5 MG/ML 1 ML VIAL IM PRN (15:17)
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
--- NOTE | 2024-02-12 17:01 | P.CN ---
Psychiatric Consult - . Consult date: 02/12/24 Consult:: 02/12/24 16:58 CONSULTATION Reason for consult: Aggressive and agitated behavior identifying Data: The patient is a year 33 old, single, white, who lives in [place], [place] with his mother. Reason for admission: Seizure disorder. History of present illness: The patient was brought to the emergency department with history of seizure disorder for evaluation. The patient's mother indicated that the patient's neurologist is in the process of changing his anticonvulsant regimen. He is being weaned off 1 medication and it is being replaced with another. As per mother he had 3 hours of focal seizure, which was very unusual. During the postictal phase he was urinating in the kitchen, acting confused, aggressive, and confrontational. EMS stated that the patient was very confrontational with them. The patient was unable to provide any meaningful history. He was in 4 points restraints for being physically aggressive towards the nurse and the mother, as per nursing staff. Most of the history was obtained from the mother. As per mother, the patient was diagnosed with Bipolar disorder 12 years ago at [facility]. He was treated there for 2 years. After that the treatment was discontinued. He had his first seizure in 2018 following acute kidney injury and Rhabdomyolysis, as per EMR. As per mother, the patient had no psychiatric treatment from 2013 to 2021. He had no out-pt treatment or in- patient treatment. She noted that the patient sometime gets angry and agitated but became calm and mallow following the seizures. He was prescribed Seroquel 50 mg and Xanax 0.5 mg and Tegretol by his neurologist for sleep, anxiety and seizure/bipolar disorder, respectively. She noted that Seroquel in the day time makes him aggressive. Also, Ativan makes him aggressive. On leading questions, the mother denied patient having depression, anxiety, hopelessness, worthlessness, suicidal or homicidal ideation prior to this admission. She patient having any symptoms consistent with delusional behavior or hallucinations prior to admission. She noted that the patient has been agitated combative and aggressive. Current and past medications: As stated above. Mother does not remember what medications were given at [facility]. Out-pt follow-up: None to a psychiatric facility. The patient gets his psychotropic meds from his Neurologist. History of past psychiatric illness: No other than stated in HPI. No history of suicidal or homicidal ideations or behavior. Past medical history: Seizure disorder. Substance abuse history: The patient has medical Marijuana card and smokes Marijuna, which helps patient, as per mother. Family history of psychiatric disorder: The mother noted that most of the family has depression or anxiety and some are being treated as an out-pt. No in-patient treatments. No h/o Suicide or Homicide. MSE: Could not be assessed. Demanding and uncooperative. Psychomotor activity: Increased Speech: Normal tone, quality, and quantity Mood: Could not be assessed. Affect: Upset and agitated. SI or HI: None noted. Thought content: No over paranoia or any other delusional theme noted. Thought process: Normal Perceptual disturbance: No hallucinatory behavior noted. Cognition: Could not be assessed. Judgement and Insight: Poor. Diagnosis: Altered Mental status secondary to prolonged Postictal state or possible repeated partial seizures. Rec: Continue current medications to address the agitation. The patient does not meet in-patient criteria for psychiatric admission at this time. Please call for any questions.
[2024-02-12] MEDS: DIVALPROEX 500 MG TABLET.DR PO SCH (17:37)
[2024-02-12] MEDS: Lacosamide IV (ages 17+ yrs) 200 MG/20 ML ML IVP SCH (17:41)
[2024-02-12] MEDS: HALOPERIDOL LACTATE 5 MG/ML 1 ML VIAL IM STA (17:42)
[2024-02-12] MEDS: ALPRAZolam 0.25 MG TAB PO PRN (17:43)
[2024-02-12] MEDS: carBAMazepine 400 MG TAB.ER.12H PO SCH (17:43)
[2024-02-12] MEDS: QUEtiapine 50 MG TAB PO SCH (20:51)
[2024-02-12] MEDS: CENOBAMATE PO SCH (21:46)
[2024-02-12] MEDS: BRIVIACT 100 MG PO SCH (21:47)
[2024-02-12] MEDS: VALPROATE SODIUM 500 MG in SODIUM CHLORIDE 0.9% 100 ML IVPB SCH (21:49)
[2024-02-12] MEDS: SODIUM CHLORIDE 0.9% 1,000 ML IV SCH (21:52)
[2024-02-12 22:19] VITALS: TEMP 98.7
--- NOTE | 2024-02-13 00:57 | P.HPIM ---
History of Present Illness H&P Date: 02/12/24 Chief Complaint: Seizures Patient dizziness 33-year-old male with a known history of seizure disorder, bipolar disorder, history of heroin, opiate and prescription drug abuse and chronic pain presents to ER for further evaluation of seizures. Currently his mother he has been having [id number] seizures followed by confusion. He was witnessed by a bystander. Currently his mother patient is on follow-up with neurology as an outpatient with telemedicine and his medications are being changed by weaning off 1 medication replaced by another. Apparently patient had seizures probably for an hour followed by postictal. Patient became aggressive and combative. He was given Versed in the ER. It was per EMS patient was very confrontational with them. Otherwise patient cannot provide any history. CT head showed no acute intracranial abnormality. EKG showed sinus rhythm. Laboratory data showed WBC 12.1 hemoglobin 15.7 and platelets 316 sodium 137 potassium 4.6 chloride 102 bicarb is 21 BUN 49 creatinine 0.8 and blood sugar 161 and albumin 5.2 UDS is positive for opiates, benzodiazepines and marijuana. Review of Systems ROS unobtainable: due to mental status Past Medical History Past Medical History: Seizure Disorder Additional Past Medical History / Comment(s): scoliosis, encephalitis causing seizures 2018 History of Any Multi-Drug Resistant Organisms: None Reported Past Surgical History: Orthopedic Surgery Additional Past Surgical History / Comment(s): Right femur Past Anesthesia/Blood Transfusion Reactions: No Reported Reaction Past Psychological History: Bipolar Smoking Status: Vaper Past Alcohol Use History: Occasional Past Drug Use History: Heroin, Opiates, Prescription Drug Abuse - Past Family History Mother Family Medical History: Cancer, Congestive Heart Failure (CHF), Diabetes M ellitus, Hypertension Additional Family Medical History / Comment(s): skin cancer Father Family Medical History: Cancer, Prostate Disorder Additional Family Medical History / Comment(s): leukemia, systemic lupus erythem atosus Medications and Allergies Home Medications Medication Instructions Recorded Confirmed Type Brivaracetam [Briviact] 100 mg PO BID 06/03/22 02/12/24 History QUEtiapine FUMARATE 50 mg PO HS 06/03/22 02/12/24 History carBAMazepine [carBAMazepine ER] 400 mg PO BID 06/03/22 02/12/24 History ALPRAZolam [Xanax] 0.25 mg PO TID PRN 02/12/24 02/12/24 History Cenobamate [Xcopri] See Taper PO DAILY 02/12/24 02/12/24 History HYDROcodone/APAP 7.5-325MG [Ponder 1 tab PO BID 02/12/24 02/12/24 History 7.5-325] Lacosamide [Vimpat] 200 mg PO BID 02/12/24 02/12/24 History Midazolam [Nayzilam] 1 spray NASAL DIRECTED PRN 02/12/24 02/12/24 History Allergies Allergy/AdvReac Type Severity Reaction Status Date / Time lorazepam [From Ativan] AdvReac Severe Confusion Verified 02/12/24 10:42 Physical Exam Vitals: Vital Signs Temp Pulse Resp BP Pulse Ox 02/12/24 10:00 80 18 134/81 97 02/12/24 06:30 80 16 138/98 95 02/12/24 06:15 76 14 125/79 96 02/12/24 06:00 79 12 130/80 95 02/12/24 05:55 91 12 138/82 96 02/12/24 05:35 94 16 135/92 98 02/12/24 05:25 101 H 16 160/97 97 02/12/24 04:20 74 18 114/74 94 L 02/12/24 04:00 80 16 110/69 93 L 02/12/24 03:20 72 16 117/80 97 02/12/24 02:59 68 16 110/79 89 L 02/12/24 02:29 96.9 F L 94 18 138/95 98 Intake and Output 02/11/24 02/12/24 02/12/24 22:59 06:59 14:59 Other: Weight 68.039 kg PHYSICAL EXAMINATION: Patient is lying in the bed agitated and combative. Resting. HEENT: Normocephalic. Neck is supple. Pupils reactive. Nostrils clear. Oral cavity is moist. Neck reveals no JVD, carotid bruits, or thyromegaly. CHEST EXAMINATION: Trachea is central. Symmetrical expansion. Lung shell clear to auscultation and percussion. CARDIAC: Normal S1, S2 with no gallops. No murmurs ABDOMEN: Soft. Bowel sounds normal. No organomegaly. No abdominal bruits. Extremities: reveal no edema. No clubbing or cyanosis Neurologically awake, alert, oriented x 2-3. With well-coordinated movements. No focal deficits noted Skin: No rash or skin lesions. Psychiatric: Noncooperative Musculoskeletal: No joint swelling or deformity. Normal range of motion. Results CBC & Chem 7: 02/12/24 02:34 02/12/24 02:34 Labs: Abnormal Lab Results - Last 24 Hours (Table) 02/12/24 02/12/24 02/12/24 Range/Units 02:34 02:34 11:50 WBC 12.5 H (3.8-10.6) k/uL Neutrophils # 11.1 H (1.3-7.7) k/uL Lymphocytes # 0.8 L (1.0-4.8) k/uL Carbon Dioxide 21 L (22-30) mmol/L Glucose 161 H (74-99) mg/dL Albumin 5.2 H (3.5-5.0) g/dL Urine Opiates Screen Detected H (NotDetected) U Benzodiazepines Scrn Detected H (NotDetected) U Marijuana (THC) Screen Detected H (NotDetected) Thrombosis Risk Factor Assmnt - DVT/VTE Prophylaxis DVT/VTE Prophylaxis: Pharmacologic Prophylaxis ordered Assessment and Plan Assessment: Acute seizure episode with prolonged postictal and followed by agitation and confrontational behavior. Seizure disorder. Patient is on follow-up with neurology as an outpatient and his medications are being changed. UDS positive for opiates, benzodiazepines and marijuana. Scoliosis Chronic pain Bipolar disorder History of heroin, opiate and prescription drug abuse Daily vaping DVT prophylaxis with heparin subcu Plan: Patient is currently on point hard leather restraints. Still agitated and pulling the the bed. Current with IV hydration. Haldol as needed for agitation. Was given a dose of Geodon in the ER. Patient was started back on AEDs as per neurology recommendations. Continue to monitor closely. Seizure precautions and fall precautions. Prognosis is guarded. Time with Patient: Greater than 30
[2024-02-13] MEDS: LORazepam 2 MG/ML INJ IV PRN (01:21)
[2024-02-13 06:09] VITALS: BP 130/90; PULSE 94; RESP 17
[2024-02-13] MEDS: HEPARIN SODIUM,PORCINE 5,000 UNIT/ML 1 ML VIAL SQ SCH (09:03)
[2024-02-13 10:34] LABS: Basophils # (A) 0.05 X 10*3/uL (0.00-0.10); Basophils % (A) 0.5 %; Eosinophils # (A) 0.04 X 10*3/uL (0.04-0.35); Eosinophils % (A) 0.4 %; Lymphocytes # (A) 1.81 X 10*3/uL (0.90-5.00); Lymphocytes % (A) 17.1 %; MCH 30.9 pg (27.0-32.0); MCV 90.9 FL (80.0-97.0); Mean Platelet Volume 9.9 FL (9.5-12.2); Monocytes # (A) 1.42 X 10*3/uL (0.20-1.00); Monocytes % (A) 13.4 %; NRBC Per 100 WBC 0 X 10*3/uL (0.00-0.01); Neutrophils # (A) 7.25 X 10*3/uL (1.80-7.70); Neutrophils % (A) 68.2 %; Platelet Count 287 X 10*3/uL (140-440); RBC 5.17 X 10*6/uL (4.40-5.60); RDW 11.9 % (11.5-14.5); WBC 10.61 X 10*3/uL (4.50-10.00)
[2024-02-13 10:47] LABS: ALT 66 U/L (10-49); AST 74 U/L (14-35); Albumin 4.9 g/dL (3.8-4.9); Albumin/Globulin Ratio 2.13 Ratio (1.60-3.17); Alkaline Phosphatase 105 U/L (41-126); Blood Urea Nitrogen 12.7 mg/dL (9.0-27.0); Calcium 9.3 mg/dL (8.7-10.3); Carbon Dioxide 23.8 mmol/L (21.6-31.8); Chloride 102 mmol/L (96-109); Globulin 2.3 g/dL (1.6-3.3); Glucose 106 mg/dL (70-110); Potassium 3.4 mmol/L (3.5-5.5); Sodium 141 mmol/L (135-145); Total Bilirubin 0.7 mg/dL (0.3-1.2); Total Protein 7.2 g/dL (6.2-8.2)
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
--- NOTE | 2024-02-14 01:42 | EEG ---
ELECTROENCEPHALOGRAM REPORT CLINICAL HISTORY: This is a 33-year-old gentleman with history of seizure, who presents because of breakthrough seizure. The video EEG is obtained to evaluate for seizure epileptiform activity. RELEVANT MEDICATIONS: 1. Vimpat. 2. Depakote. 3. Carbamazepine. 4. Ativan. 5. Valium. 6. Briviact. 7. Xcopri. EEG TYPE: This is a routine 21-channel EEG with video using the 10/20 electrode placement system. DESCRIPTION: Wakefulness is obtained. During awake state, the background consists of low-to- moderate voltage of 7.5 to 8.5 hertz activity. At times, the background consists of theta intermixed with delta activity. There is no physiological stage 2 sleep architecture. There is no focal slowing. Interictal and ictal is, there appears to be sharply contoured activity/spikes over the left central parietal region. No seizures noted during the study. ACTIVATION PROCEDURE: Photic stimulation did not evoke a posterior driving response. There is no abnormality during the photic stimulation. Hyperventilation is not performed. CLINICAL INTERPRETATION: This is an abnormal routine EEG. The background slowing is suggestive of mild encephalopathy. The epileptiform discharges appears to be stemming from left central/ parietal region which can increase risk for focal seizure. Otherwise, no focal slowing or seizure noted during the study. Clinical correlation is recommended. PATTY / ISIDRAN: [id number] / CHAVA
== END 2024-02-13 15:10 | disposition home or self-care (01) ==
LOC: EC 02:25 → 6NMEDSUR 10:15
PROVIDERS: ADMIT Internal Medicine; ATTEND Internal Medicine
DX: G40.909 Epilepsy, unspecified, not intractable, without status epilepticus (principal); R45.1 Restlessness and agitation; F31.9 Bipolar disorder, unspecified; M41.9 Scoliosis, unspecified; G89.29 Other chronic pain; F11.10 Opioid abuse, uncomplicated; F17.290 Nicotine dependence, other tobacco product, uncomplicated; Z79.899 Other long term (current) drug therapy
CPT/HCPCS: 96376 ×2; 96361; 96365; 96366; 96372; 96375 ×2; 99285; 36415; 95816; 93005; 80156; 80053 ×2; 83735; 85025 ×2; 80306; 70450; G0378 ×2; G0480; J2060; J1630; J3360; J2405; J2250; J3486; C9254 ×2; 80320